=== PATIENT | female | born 1970 | race African-American/Black ===

== ENCOUNTER 2017-11-07 18:12 | Inpatient (IN) | payer OTHER ==
[2017-11-07] MEDS ORDERED: SODIUM CHLORIDE 0.9% 1000 ML INFUS.BAG IV STA (18:25)
--- NOTE | 2017-11-07 18:25 | PDOC ---
Attending Attestation - Resident Resident Name: Leo Mccollum - ED Attending Attestation I have performed the following: I have examined & evaluated the patient, The case was reviewed & discussed with the resident, I agree w/resident's findings & plan, Exceptions are as noted - HPI HPI: 11/07/17 18:21 eLEVATED tEMP, dEPRESSED lEVEL OF cONSCIOUSNESS, TOXIC aPPEARANCE, hX OF [place] cHOREA - Physicial Exam PE: 11/07/17 18:24 aCUTELY iLL/sEPTIC aPPEARANCE - Medical Decision Making 11/07/17 18:24 i AGREE WITH dR. Mccollum'S aSSESMENT AND pLAN
[2017-11-07 18:43] VITALS: BMI 19.2
[2017-11-07] MEDS ORDERED: ACETAMINOPHEN 1000 MG/100 ML VIAL (NON FORMULARY) IVPB ONE (18:45)
[2017-11-07] MEDS ORDERED: ACETAMINOPHEN INJECTION 100 ML IVPB ONE (18:46)
[2017-11-07 18:54] LABS: EOS % 0.2 % (0-4.5); HEMATOCRIT 40.6 % (32.4-45.2); HEMOGLOBIN 13.3 GM/dL (10.7-15.3); MCHC 32.6 g/dl (32.0-36.0); MEAN CELL VOLUME 88.9 fl (80-96); MEAN PLT VOLUME 8.5 fl (7.5-11.1); MONO % 6.3 % (3.8-10.2); NEUT % 73.5 % (42.8-82.8); PLATELET COUNT 413 K/MM3 (134-434); RBC 4.57 M/mm3 (3.60-5.2); RDW 14.7 % (11.6-15.6); WHITE BLOOD COUNT 12.4 K/mm3 (4.0-10.0)
[2017-11-07 19:12] LABS: INR 0.97 (0.82-1.09)
[2017-11-07 19:15] LABS: ACTIVATED PTT 30.1 SECONDS (26.9-34.4)
--- NOTE | 2017-11-07 19:27 | PDOC ---
History of Present Illness - General Chief Complaint: SIRS, Suspected/Possible Stated Complaint: FEVER Time Seen by Provider: 11/07/17 18:21 - History of Present Illness Initial Comments: 11/07/17 23:15 The patient is a 47 year old female with a history of Mel's, Bipolar, anxiety, depression, CAD, Epilepsy, anemia who presents from [facility] for evaluation of projectile vomiting, fever, and tachycardia. The patient was recently admitted at an OSH for sepsis and discharged to [facility]. She was noted to have projectile vomiting on rounds and sent to the ER for evaluation. History is limited and the patient is non-verbal at baseline and minimally responsive. She does have a PEG tube placed with a recent confirmed CT demonstrating the PEG tube within the body of the stomach. Past History - Past Medical History Allergies/Adverse Reactions: Allergies Allergy/AdvReac Type Severity Reaction Status Date / Time No Known Allergies Allergy Verified 11/07/17 18:36 Home Medications: Ambulatory Orders Acetaminophen 650 mg GT Q6H PRN 11/07/17 Albuterol 0.083% Nebulizer Betsy [Ventolin 0.083% Nebulizer Soln -] 1 neb NEB Q6H 11/07/17 Bacitracin - [Bacitracin Topical Ointment -] 1 applic TP DAILY 11/07/17 Clonazepam 1 mg GT TID 11/07/17 Ferrous Sulfate *Liquid* [Feosol] 5 mg NGT DAILY 11/07/17 Fluticasone Prop 0.05% Nasal [Flonase -] 1 - 2 spray NS BID 11/07/17 Levetiracetam [Keppra Oral Solution -] 1,000 mg GT BID 11/07/17 Magnesium Hydroxide [Milk of Magnesia -] 30 ml GT DAILY 11/07/17 Mirtazapine [Remeron -] 30 mg GT DAILY 11/07/17 Nystatin Cream [Mycostatin] 1 applic TP BID 11/07/17 Phenobarbital - 64.8 mg GT BID 11/07/17 Polyethylene Glycol 3350 [Miralax (For Bowel Prep) -] 17 gm GT DAILY PRN Sennosides [Senna Concentrate] 8.6 mg GT DAILY 11/07/17 Sodium Phosphate,[place]-Dibasic [Fleet Enema] 133 ml [place] DAILY PRN 11/07/17 Triamcinolone 0.1% Cream [Aristocort] 1 applic TP BID 11/07/17 Valproate Sodium [Depakene] 1,125 mg GT BID 11/07/17 Anemia: Yes COPD: No Psychiatric Problems: Yes (ANXIETY,DEPRESSIVE DISORDER,PANIC DISORDER,BIPOLAR) Seizures: Yes Other medical history: [place] - Suicide/Smoking/Psychosocial Hx Smoking History: Unknown if ever smoked Review of Systems - Review of Systems Able to Perform ROS?: No (Unresponsive patient) *Physical Exam - Vital Signs Last Vital Signs Temp Pulse Resp BP Pulse Ox 139 H 24 111/88 93 L 11/07/17 18:36 11/07/17 18:36 11/07/17 18:36 11/07/17 18:36 - Physical Exam Comments: 11/07/17 23:18 General Appearance: Nourished. No Apparent Distress HEENT: EOMI, EMILEE. No Pharyngeal Erythema, Tonsillar Exudate, Tonsillar Erythema Neck: No Cervical Lymphadenopathy Respiratory/Chest: Lungs Clear, Normal Breath Sounds. No Crackles, Rales, Rhonchi, Wheezing Cardiovascular: Regular Rhythm, Regular Rate. No Murmur, Gallops, Rubs Gastrointestinal/Abdominal: Normal Bowel Sounds, Soft. No Guarding, Rebound, Tenderness Musculoskeletal: No CVA Tenderness Extremity: Normal Capillary Refill Integumentary: Normal Color, Dry, Warm Neurologic: Minimally responsive at baseline. Alert. ED Treatment Course - LABORATORY CBC & Chemistry Diagram: 11/07/17 18:45 11/07/17 18:45 - ADDITIONAL ORDERS Additional order review: Laboratory Results 11/07/17 11/07/17 18:45 18:40 VBG pH Cancelled POC VBG pCO2 Cancelled POC VBG pO2 Cancelled Mixed VBG HCO3 Cancelled Blood Type Cancelled Antibody Screen Cancelled 11/07/17 18:45 RBC 4.57 MCV 88.9 MCHC 32.6 RDW 14.7 MPV 8.5 Neutrophils % 73.5 Lymphocytes % 19.0 Monocytes % 6.3 Eosinophils % 0.2 Basophils % 1.0 - Medications Given in the ED: ED Medications Discontinued Medications Generic Name Dose Route Start Last Admin Trade Name Freq PRN Reason Stop Dose Admin Acetaminophen 1,000 mg 11/07/17 18:45 11/07/17 19:01 Ofirmev Injection - IVPB 11/07/17 18:46 1,000 mg ONCE ONE Administration Sodium Chloride 2,000 ml 11/07/17 18:25 11/07/17 18:35 Normal Saline - IV 11/07/17 18:26 2,000 ml ONCE STA Administration Medical Decision Making - Medical Decision Making 11/07/17 23:19 The patient is a 47 year old female with a history of Mel's, Bipolar, anxiety, depression, CAD, Epilepsy, anemia who presents from [facility] for evaluation of projectile vomiting, fever, and tachycardia. Differential includes but is not limited to: Sepsis, pneumonia, UTI, infectious , metabolic derangement. Given the patient's tachycardia, fever of 100F, and recent admission for sepsis, we are concerned the patient's current symptoms are due to sepsis. We will obtain a cbc, cmp, lactate, vbg, troponin, ua, ekg, chest and abdomen plain films, and head ct to evaluate for other etiologies. We will continue to monitor and reassess. 11/07/17 23:49 CBC demonstrates a wbc elevation to 12.5. CMP, lactate, troponin, ua are unremarkable. chest and abdomen plain films are unremarkable as preliminarily read by the ER physician. Head CT is negative as read by our radiologist. Given the patient's continued tachycardia, fever to 100, and elevated wbc, we believe the patient requires observation admission for further management of her symptoms. We discussed the case with the hospitalist team who accepted the patient for admission. *DC/Admit/Observation/Transfer Diagnosis at time of Disposition: Sepsis Qualifiers: Sepsis type: sepsis due to unspecified organism Qualified Code(s): A41.9 - Sepsis, unspecified organism - Discharge Dispostion Condition at time of disposition: Guarded Admit: Yes - Referrals Referrals: Dave Catherine [Primary Care Provider] - - Patient Instructions - Post Discharge Activity
[2017-11-07 19:30] LABS: ALBUMIN 2.8 g/dl (3.4-5.0); BILIRUBIN,TOTAL 0.3 mg/dL (0.2-1.0); BLOOD UREA NITROGEN 16 mg/dL (7-18); CALCIUM 8.9 mg/dL (8.5-10.1); CHLORIDE 102 mmol/L (98-107); CO2 29 mmol/L (21-32); CREATININE 0.3 mg/dL (0.55-1.02); GLUCOSE,RANDOM 114 mg/dL (74-106); SGPT/ALT 182 U/L (12-78); TOT PROT 7.9 g/dl (6.4-8.2)
[2017-11-07 19:32] LABS: ALK PHOS 245 U/L (45-117)
[2017-11-07 19:48] LABS: ANION GAP 7 (8-16); SODIUM 138 mmol/L (136-145)
[2017-11-07 20:07] LABS: URINE APPEARANCE SLCLOUDY; URINE BILIRUBIN NEGATIVE (NEGATIVE); URINE BLOOD NEGATIVE (NEGATIVE); URINE COLOR YELLOW; URINE GLUCOSE (UA) NEGATIVE (NEGATIVE); URINE KETONE TRACE (NEGATIVE); URINE LEUK ESTERASE NEGATIVE (NEGATIVE); URINE NITRITE NEGATIVE (NEGATIVE)
[2017-11-07 20:20] LABS: POTASSIUM 4.5 mmol/L (3.5-5.1); SGOT/AST 171 U/L (15-37)
[2017-11-07 21:44] LABS: URINE PROTEIN 1+ (NEGATIVE)
[2017-11-07 22:03] LABS: EPI CELLS FEW /HPF (FEW); URINE MUCUS RARE
[2017-11-07 23:28] LABS: PLATELET ESTIMATE SLT INCREASE
--- NOTE | 2017-11-08 05:16 | HP ---
Admitting History and Physical - Primary Care Physician PCP: Dave Catherine - Admission Chief Complaint: Vomiting History of Present Illness: This is a 47 y/o woman with a past medical history of Zohreh's, Bipolar, Anxiety, Depression, CAD, Epilepsy, Anemia. who presents to the ED from [facility] for evaluation of projectile vomiting, fever, and tachycardia. As per ER records: the patient was admitted to [place] for Sepsis, then d/c to [facility]. The patient has a PEG tube placed with recent confirmed CT demonstrating the PEG tube within the body is in place. The patient was given 2L NS for resuscitation, Tylenol IV for fever. History Source: Medical Record, Transfer Record Limitations to Obtaining History: Clinical Condition, Dementia - Past Medical History DIRECTOR OF STATE: Yes: Dementia, Seizure (Epilepsy), Other ([place]'s) Cardiovascular: Yes: CAD Heme/Onc: Yes: Anemia Psych: Yes: Anxiety, Bipolar, Depression - Smoking History Smoking history: Unknown if ever smoked - Alcohol/Substance Use Hx Alcohol Use: No (unknown) History of Substance Use: reports: None - Social History Usual Living Arrangement: Yes: [facility] ADL: Support Services History of Recent Travel: No Home Medications - Allergies Allergies/Adverse Reactions: Allergies Allergy/AdvReac Type Severity Reaction Status Date / Time No Known Allergies Allergy Verified 11/07/17 18:36 - Home Medications Home Medications: Ambulatory Orders Acetaminophen 650 mg GT Q6H PRN 11/07/17 Albuterol 0.083% Nebulizer Betsy [Ventolin 0.083% Nebulizer Soln -] 1 neb NEB Q6H 11/07/17 Bacitracin - [Bacitracin Topical Ointment -] 1 applic TP DAILY 11/07/17 Clonazepam 1 mg GT TID 11/07/17 Ferrous Sulfate *Liquid* [Feosol] 5 mg NGT DAILY 11/07/17 Fluticasone Prop 0.05% Nasal [Flonase -] 1 - 2 spray NS BID 11/07/17 Levetiracetam [Keppra Oral Solution -] 1,000 mg GT BID 11/07/17 Magnesium Hydroxide [Milk of Magnesia -] 30 ml GT DAILY 11/07/17 Mirtazapine [Remeron -] 30 mg GT DAILY 11/07/17 Nystatin Cream [Mycostatin] 1 applic TP BID 11/07/17 Phenobarbital - 64.8 mg GT BID 11/07/17 Polyethylene Glycol 3350 [Miralax (For Bowel Prep) -] 17 gm GT DAILY PRN Sennosides [Senna Concentrate] 8.6 mg GT DAILY 11/07/17 Sodium Phosphate,[place]-Dibasic [Fleet Enema] 133 ml [place] DAILY PRN 11/07/17 Triamcinolone 0.1% Cream [Aristocort] 1 applic TP BID 11/07/17 Valproate Sodium [Depakene] 1,125 mg GT BID 11/07/17 Family Disease History - Family Disease History Family History: Unable to Obtain Review of Systems Unable to obtain ROS, reason: [place]'s, Dementia Physical Examination Vital Signs: Vital Signs Temperature 100 F H 11/07/17 22:45 Pulse Rate 126 H 11/08/17 04:15 Respiratory Rate 22 11/07/17 22:45 Blood Pressure 124/89 11/08/17 04:15 O2 Sat by Pulse Oximetry (%) 97 11/08/17 04:15 Constitutional: Yes: Anxious, Mild Distress, Thin Eyes: Yes: Conjunctiva Clear, PERRL HENT: Yes: Other (Dry mucous membranes, crusting to lips/oral mucousa) Neck: Yes: WNL, Supple, Trachea Midline Cardiovascular: Yes: Tachycardia, S1, S2 Respiratory: Yes: WNL, Regular, CTA Bilaterally, On Nasal O2 Gastrointestinal: Yes: Soft, Hypoactive Bowel Sounds, Other (PEG upper abdomen) ...Rectal Exam: Yes: Deferred Renal/: Yes: [place] Present (dark yellow urine in drainage bag) Breast(s): Yes: WNL Musculoskeletal: Yes: Muscle Weakness Edema: No Peripheral Pulses WNL: Yes Integumentary: Yes: WNL Neurological: Yes: Alert, Other (non-verbal- baseline) Psychiatric: Yes: Alert Labs: CBC, BMP 11/07/17 18:45 11/07/17 18:45 Laboratory Results - last 24 hr 11/07/17 11/07/17 11/07/17 18:40 18:45 18:45 WBC 12.4 H RBC 4.57 Hgb 13.3 Hct 40.6 MCV 88.9 MCH 29.0 MCHC 32.6 RDW 14.7 Plt Count 413 MPV 8.5 Neutrophils % 73.5 Lymphocytes % 19.0 Monocytes % 6.3 Eosinophils % 0.2 Basophils % 1.0 Platelet Estimate Slt increase Platelet Comment No clotting detected PT with INR 11.00 INR 0.97 PTT (Actin FS) 30.1 VBG pH Cancelled POC VBG pCO2 Cancelled POC VBG pO2 Cancelled Mixed VBG HCO3 Cancelled Sodium Potassium Chloride Carbon Dioxide Anion Gap BUN Creatinine Creat Clearance w eGFR Random Glucose Lactic Acid Calcium Total Bilirubin AST ALT Alkaline Phosphatase Creatine Kinase Troponin I Total Protein Albumin Urine Color Urine Appearance Urine pH Ur Specific [place] Urine Protein Urine Glucose (UA) Urine Ketones Urine Blood Urine Nitrite Urine Bilirubin Urine Urobilinogen Ur Leukocyte Esterase Urine WBC (Auto) Urine RBC (Auto) Ur Epithelial Cells Urine Mucus Urine HCG, Qual Valproic Acid Blood Type Antibody Screen 11/07/17 11/07/17 11/07/17 18:45 18:45 18:50 WBC RBC Hgb Hct MCV MCH MCHC RDW Plt Count MPV Neutrophils % Lymphocytes % Monocytes % Eosinophils % Basophils % Platelet Estimate Platelet Comment PT with INR INR PTT (Actin FS) VBG pH POC VBG pCO2 POC VBG pO2 Mixed VBG HCO3 Sodium 138 Potassium 4.5 Chloride 102 Carbon Dioxide 29 Anion Gap 7 L BUN 16 Creatinine 0.3 L Creat Clearance w eGFR > 60 Random Glucose 114 H Lactic Acid 1.7 Calcium 8.9 Total Bilirubin 0.3 AST 171 H ALT 182 H Alkaline Phosphatase 245 H Creatine Kinase 136 Troponin I < 0.02 Total Protein 7.9 Albumin 2.8 L Urine Color Urine Appearance Urine pH Ur Specific [place] Urine Protein Urine Glucose (UA) Urine Ketones Urine Blood Urine Nitrite Urine Bilirubin Urine Urobilinogen Ur Leukocyte Esterase Urine WBC (Auto) Urine RBC (Auto) Ur Epithelial Cells Urine Mucus Urine HCG, Qual Valproic Acid Blood Type Cancelled Antibody Screen Cancelled 11/07/17 11/07/17 11/08/17 18:58 19:40 01:45 WBC RBC Hgb Hct MCV MCH MCHC RDW Plt Count MPV Neutrophils % Lymphocytes % Monocytes % Eosinophils % Basophils % Platelet Estimate Platelet Comment PT with INR INR PTT (Actin FS) VBG pH POC VBG pCO2 POC VBG pO2 Mixed VBG HCO3 Sodium Potassium Chloride Carbon Dioxide Anion Gap BUN Creatinine Creat Clearance w eGFR Random Glucose Lactic Acid Calcium Total Bilirubin AST ALT Alkaline Phosphatase Creatine Kinase Troponin I Total Protein Albumin Urine Color Yellow Urine Appearance Slcloudy Urine pH 5.0 Ur Specific [place] 1.033 Urine Protein 1+ H Urine Glucose (UA) Negative Urine Ketones Trace H Urine Blood Negative Urine Nitrite Negative Urine Bilirubin Negative Urine Urobilinogen 2.0 H Ur Leukocyte Esterase Negative Urine WBC (Auto) 8 Urine RBC (Auto) 12 Ur Epithelial Cells Few Urine Mucus Rare Urine HCG, Qual Negative Valproic Acid 56.870 Blood Type Antibody Screen Intake & Output 11/05/17 11/06/17 11/07/17 11/08/17 23:59 23:59 23:59 23:59 Weight 50.802 kg Imaging - Results Chest X-ray: Image Reviewed X-ray: Image Reviewed Cat Scan: Report Reviewed EKG: Image Reviewed (ST 115bpm, nonspecific T wave abnormality TN interval 118 QT/QTc 290/401) Problem List - Problems (1) Sepsis Assessment/Plan: - SIRS Criteria III Met- WBC 12.4, T Max 100, P- 110 - qSOFA Score 2 - Blood Cultures- pending - Urine Cultures- pending - Rapid Influenza- pending - Chest Xray image reviewed no infiltrate, awaiting report - NS bolus, Tylenol given in ED - Appreicate ID Consult - Will start Vancomycin, Rocephin now - Continue IVF monitor for fluid overload Code(s): A41.9 - SEPSIS, UNSPECIFIED ORGANISM Qualifiers: Sepsis type: sepsis due to unspecified organism Qualified Code(s): A41.9 - Sepsis, unspecified organism (2) Elevated LFTs Assessment/Plan: - LFTs > 3XNL - Likely secondary to Sepsis vs Acute Viral Hepatitis vs Tylenol Toxicity - Xray Abdomen- report pending - Consider Abdominal CT if condition worsens - Hepatic Panel in am - Tylenol level in am Code(s): R79.89 - OTHER SPECIFIED ABNORMAL FINDINGS OF BLOOD CHEMISTRY (3) Dementia Assessment/Plan: - Continue home med Code(s): F03.90 - UNSPECIFIED DEMENTIA WITHOUT BEHAVIORAL DISTURBANCE (4) Zohreh disease Assessment/Plan: - 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 Placed in Tele Observation for Sepsis. FEN - D51/2NS@75cc/hr - Replete breanne velazquezn - NPO Code Status: Full Code Dispo: Tele Observation Visit type - Emergency Visit Emergency Visit: Yes ED Registration Date: 11/07/17 Care time: The patient presented to the Emergency Department on the above date and was hospitalized for further evaluation of their emergent condition. - New Patient This patient is new to me today: Yes Date on this admission: 11/08/17 - Critical Care Critical Care patient: No
[2017-11-08] MEDS ORDERED: SODIUM CHLORIDE 500 ML IV STA (05:21)
[2017-11-08] MEDS ORDERED: VANCOMYCIN 1 GRAM (PRE-DOCKED) 1,000 MG/250 ML BAG IVPB ONE (05:58)
[2017-11-08] MEDS ORDERED: CEFTRIAXONE 1 GM in DEXTROSE 5%-WATER - 100 ML IVPB ONE (05:59)
[2017-11-08] MEDS ORDERED: PATIENT'S OWN MEDICATION (NON-FORMULARY) (Clonazepam [Clonazepam] 1 MG) GT SCH (06:00)
[2017-11-08] MEDS ORDERED: CEFTRIAXONE 1 GM/50 ML BAG ONE (06:02)
[2017-11-08] MEDS ORDERED: ACETAMINOPHEN 1000 MG/100 ML VIAL (NON FORMULARY) IVPB ONE (06:40)
[2017-11-08] MEDS ORDERED: IBUPROFEN 800 MG/8 ML IJ IVPB ONE (06:47)
[2017-11-08] MEDS: DEXTROSE 5%-0.45% SALINE 1,000 ML IV SCH (06:51)
[2017-11-08] MEDS ORDERED: clonazePAM 0.5 MG TABLET ONE (06:54)
[2017-11-08 08:58] LABS: BASO % 0.4 % (0-2.0); EOS % 0.3 % (0-4.5); HEMATOCRIT 38.4 % (32.4-45.2); MCH 28.5 pg (25.7-33.7); MCHC 31.3 g/dl (32.0-36.0); MEAN CELL VOLUME 91.1 fl (80-96); MEAN PLT VOLUME 8.4 fl (7.5-11.1); MONO % 6.3 % (3.8-10.2); PLATELET COUNT 284 K/MM3 (134-434); RBC 4.21 M/mm3 (3.60-5.2); RDW 14.7 % (11.6-15.6); WHITE BLOOD COUNT 11.5 K/mm3 (4.0-10.0)
[2017-11-08 09:13] LABS: ANION GAP 10 (8-16); BLOOD UREA NITROGEN 15 mg/dL (7-18); CALCIUM 8.9 mg/dL (8.5-10.1); CHLORIDE 106 mmol/L (98-107); CO2 25 mmol/L (21-32); CREATININE 0.2 mg/dL (0.55-1.02); GLUCOSE,RANDOM 121 mg/dL (74-106); POTASSIUM 3.6 mmol/L (3.5-5.1); SODIUM 141 mmol/L (136-145)
[2017-11-08] MEDS ORDERED: PHENobarbital 20 MG/5 ML UNIT-DOSE CUP GT SCH (10:00)
[2017-11-08] MEDS ORDERED: VALPROATE SODIUM 250 MG/5 ML UNIT DOSE CUP GT SCH (10:00)
[2017-11-08] MEDS ORDERED: SENNOSIDES 8.6MG TABLET (FP) PO SCH (10:00)
[2017-11-08] MEDS ORDERED: levETIRAcetam 500 MG/5 ML ORAL SOLUTION (UNIT-DOSE CUPS) GT SCH (10:00)
[2017-11-08] MEDS ORDERED: MIRTAZAPINE 15 MG TABLET (FP) ONE (10:27)
[2017-11-08] MEDS ORDERED: SENNOSIDES 8.8 MG/5 ML BULK BOTTLE GT SCH (10:31)
[2017-11-08] MEDS: MIRTAZAPINE 30 MG TABLET (FP) PO SCH (11:10)
[2017-11-08] MEDS ORDERED: ACETAMINOPHEN 325 MG TABLET (FP) PO PRN (11:36)
--- NOTE | 2017-11-08 13:01 | EKG ---
Test Reason : Blood Pressure : / mmHG Vent. Rate : 115 BPM Atrial Rate : 115 BPM P-R Int : 118 ms QRS Dur : 058 ms QT Int : 290 ms P-R-T Axes : 073 031 021 degrees QTc Int : 401 ms SINUS TACHYCARDIA POSSIBLE LEFT ATRIAL ENLARGEMENT NONSPECIFIC T WAVE ABNORMALITY ABNORMAL ECG NO PREVIOUS ECGS AVAILABLE Confirmed by ANETA GARCIA, ALEX ([id number]) on 11/08/2017 1:01:16 PM Referred By: Confirmed By:ALEX CORNELL MD
--- NOTE | 2017-11-08 15:15 | PN ---
Progress Note, Physician Chief Complaint: AWAKE NON-VERBAL APHASIC NOTES AND RECORDS REVIEWED - Current Medication List Current Medications: Active Medications Acetaminophen (Tylenol -) 650 mg PO Q6H PRN PRN Reason: FEVER OR PAIN Clonazepam (Klonopin -) 1 mg GT TID [facility], [facility] Dextrose/Sodium Chloride (D5-1/2ns -) 1,000 mls @ 75 mls/hr IV ASDIR [facility], [facility]1983 Last Admin: 11/08/17 06:51 Dose: 75 mls/hr Levetiracetam (Keppra Oral Solution -) 1,000 mg GT BID [facility], [facility] Last Admin: 11/08/17 11:10 Dose: 1,000 mg Mirtazapine (Remeron -) 30 mg PO DAILY [facility] Last Admin: 11/08/17 11:10 Dose: 30 mg Phenobarbital (Phenobarbital Liquid -) 60 mg GT BID [facility] Last Admin: 11/08/17 11:10 Dose: 60 mg Senna (Senna Oral Solution -) 8.8 mg GT DAILY [facility] Valproate Sodium (Depakene -) 1,125 mg GT BID [facility], [facility] Last Admin: 11/08/17 11:10 Dose: 1,125 mg - Objective Vital Signs: Vital Signs Temperature 97.4 F L 11/08/17 13:00 Pulse Rate 100 H 11/08/17 13:00 Respiratory Rate 18 11/08/17 13:00 Blood Pressure 110/74 11/08/17 13:00 O2 Sat by Pulse Oximetry (%) 99 11/08/17 11:35 Constitutional: Yes: Mild Distress Eyes: Yes: WNL HENT: Yes: WNL Neck: Yes: WNL Cardiovascular: Yes: Tachycardia Respiratory: Yes: On Nasal O2, Wheezes Gastrointestinal: Yes: WNL Genitourinary: Yes: Incontinence Musculoskeletal: Yes: Muscle Weakness Extremities: Yes: Other Edema: No Peripheral Pulses WNL: Yes Integumentary: Yes: WNL Wound/Incision: Yes: Clean/Dry Neurological: Yes: Dysarthria, Loss of Sensation, Numbness, Pre-Existing Deficit , Unsteady Gait, Weakness ...Motor Strength: LUE, LLE, RUE, RLE Psychiatric: Yes: Other Labs: CBC, BMP 11/08/17 08:40 11/08/17 08:40 INR, PTT INR 0.97 (0.82-1.09) 11/07/17 18:45 Problem List - Problems (1) DVT prophylaxis Code(s): [id number] - (2) Dementia Code(s): F03.90 - UNSPECIFIED DEMENTIA WITHOUT BEHAVIORAL DISTURBANCE Qualifiers: Dementia type: unspecified type Dementia behavioral disturbance: with behavioral disturbance Qualified Code(s): F03.91 - Unspecified dementia with behavioral disturbance (3) Elevated LFTs Code(s): R79.89 - OTHER SPECIFIED ABNORMAL FINDINGS OF BLOOD CHEMISTRY (4) Epilepsy Code(s): G40.909 - EPILEPSY, UNSP, NOT INTRACTABLE, WITHOUT STATUS EPILEPTICUS Qualifiers: Partial seizure type: with complex partial seizures Intractability: intractable Status epilepticus: without status epilepticus (5) [place]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 Assessment/Plan IV ABX ID CONSULT NEUROLOGY EVAL IVF TYLENOL PRN
[2017-11-08] MEDS: clonazePAM 0.5 MG TABLET GT SCH ×2 (16:00→21:34)
[2017-11-08] MEDS ORDERED: PIPERACILLIN/TAZOB 3.375 GM 50 ML IVPB SCH (18:00)
--- NOTE | 2017-11-08 18:02 | CON.ID ---
Consult Consult Specialty:: infectious diseases Reason for Consultation:: sepsis,intestinal obstruction - History of Present Illness Chief Complaint: abd pain,distension History of Present Illness: 47 y/o woman with a past medical history of [place]'s, Bipolar, Anxiety, Depression, CAD, Epilepsy, Anemia. who presents to the ED from [facility] for evaluation of projectile vomiting, fever, and tachycardia. As per ER records: the patient was admitted to [place] for Sepsis, then d/c to [facility]. The patient has a PEG tube placed with recent confirmed CT demonstrating the PEG tube within the body is in place. The patient was given 2L NS for resuscitation, Tylenol IV for fever. 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: Dementia, Seizure (Epilepsy), Other ([place]'s) Cardio/Vascular: Yes: CAD Psych: Yes: Anxiety, Bipolar, Depression - Alcohol/Substance Use Hx Alcohol Use: No (unknown) History of Substance Use: reports: None - Smoking History Smoking history: Unknown if ever smoked - Social History ADL: Support Services History of Recent Travel: No Home Medications - Allergies Allergies/Adverse Reactions: Allergies Allergy/AdvReac Type Severity Reaction Status Date / Time No Known Allergies Allergy Verified 11/07/17 18:36 - Home Medications Home Medications: Ambulatory Orders Acetaminophen 650 mg GT Q6H PRN 11/07/17 Albuterol 0.083% Nebulizer Betsy [Ventolin 0.083% Nebulizer Soln -] 1 neb NEB Q6H 11/07/17 Bacitracin - [Bacitracin Topical Ointment -] 1 applic TP DAILY 11/07/17 Clonazepam 1 mg GT TID 11/07/17 Ferrous Sulfate *Liquid* [Feosol] 5 mg NGT DAILY 11/07/17 Fluticasone Prop 0.05% Nasal [Flonase -] 1 - 2 spray NS BID 11/07/17 Levetiracetam [Keppra Oral Solution -] 1,000 mg GT BID 11/07/17 Magnesium Hydroxide [Milk of Magnesia -] 30 ml GT DAILY 11/07/17 Mirtazapine [Remeron -] 30 mg GT DAILY 11/07/17 Nystatin Cream [Mycostatin] 1 applic TP BID 11/07/17 Phenobarbital - 64.8 mg GT BID 11/07/17 Polyethylene Glycol 3350 [Miralax (For Bowel Prep) -] 17 gm GT DAILY PRN Sennosides [Senna Concentrate] 8.6 mg GT DAILY 11/07/17 Sodium Phosphate,[place]-Dibasic [Fleet Enema] 133 ml [place] DAILY PRN 11/07/17 Triamcinolone 0.1% Cream [Aristocort] 1 applic TP BID 11/07/17 Valproate Sodium [Depakene] 1,125 mg GT BID 11/07/17 Review of Systems Unable to obtain ROS, reason: unable Physical Exam Vital Signs: Vital Signs Temperature 99.1 F 11/08/17 15:49 Pulse Rate 93 H 11/08/17 15:49 Respiratory Rate 16 11/08/17 15:49 Blood Pressure 116/78 11/08/17 15:49 O2 Sat by Pulse Oximetry (%) 99 11/08/17 11:35 Constitutional: Yes: Moderate Distress Eyes: Yes: Conjunctiva Clear HENT: Yes: Atraumatic, Normocephalic Neck: Yes: Supple, Trachea Midline Cardiovascular: Yes: Regular Rate and Rhythm Respiratory: Yes: Poor Air Entry (at the bases of the lungs) Gastrointestinal: Yes: Distention, Hyperactive Bowel Sounds, Tenderness, Other ( g tube in place) Musculoskeletal: Yes: WNL Extremities: Yes: WNL Neurological: Yes: Alert Psychiatric: Yes: Alert Labs: CBC, BMP 11/08/17 08:40 11/08/17 08:40 Imaging - Results X-ray: Report Reviewed, Image Reviewed Cat Scan: Report Reviewed, Image Reviewed Assessment/Plan Problem List - Problems (1) DVT prophylaxis Code(s): [id number] - (2) Dementia Code(s): F03.90 - UNSPECIFIED DEMENTIA WITHOUT BEHAVIORAL DISTURBANCE Qualifiers: Dementia type: unspecified type Dementia behavioral disturbance: with behavioral disturbance Qualified Code(s): F03.91 - Unspecified dementia with behavioral disturbance (3) Elevated LFTs Code(s): R79.89 - OTHER SPECIFIED ABNORMAL FINDINGS OF BLOOD CHEMISTRY (4) Epilepsy Code(s): G40.909 - EPILEPSY, UNSP, NOT INTRACTABLE, WITHOUT STATUS EPILEPTICUS Qualifiers: Partial seizure type: with complex partial seizures Intractability: intractable Status epilepticus: without status epilepticus (5) [place]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 7)intestinal obstruction i ahve looked at the xray i think patient probably has intestinal obstruction not complete her g tube is blocked and patient in discomfort d/w the nursing staff plan keep g-tube to drainage if the g tube does not open up then pass a ng tube iv abx changed to zosyn rest continue as per primary team
[2017-11-08] MEDS ORDERED: ONDANSETRON 4 MG/2 ML VIAL IVPUSH PRN (19:38)
[2017-11-08] MEDS ORDERED: SODIUM PHOSPHATE/NA BIPHOS 133 ML ENEMA RC ONE (19:45)
--- NOTE | 2017-11-08 19:58 | CON.GI ---
Consult Consult Specialty:: GI - History of Present Illness History of Present Illness: Chart reviewed, events noted. ID consult noted. Called for distended abdomen and bilious material aspirated via PEG. Suspicion for bowel obstruction. Abd xr one day ago was reported negative for bowel obstruction however the nurse tells me pt's abdomen appears to be more distended today. The xr also mentioend large anount of stool. 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 HAND: Yes: Dementia, Seizure (Epilepsy), Other ([place]'s) Cardio/Vascular: Yes: CAD Psych: Yes: Anxiety, Bipolar, Depression - Alcohol/Substance Use Hx Alcohol Use: No (unknown) History of Substance Use: reports: None - Smoking History Smoking history: Unknown if ever smoked - Social History ADL: Support Services History of Recent Travel: No Home Medications - Allergies Allergies/Adverse Reactions: Allergies Allergy/AdvReac Type Severity Reaction Status Date / Time No Known Allergies Allergy Verified 11/07/17 18:36 - Home Medications Home Medications: Ambulatory Orders Acetaminophen 650 mg GT Q6H PRN 11/07/17 Albuterol 0.083% Nebulizer Betsy [Ventolin 0.083% Nebulizer Soln -] 1 neb NEB Q6H 11/07/17 Bacitracin - [Bacitracin Topical Ointment -] 1 applic TP DAILY 11/07/17 Clonazepam 1 mg GT TID 11/07/17 Ferrous Sulfate *Liquid* [Feosol] 5 mg NGT DAILY 11/07/17 Fluticasone Prop 0.05% Nasal [Flonase -] 1 - 2 spray NS BID 11/07/17 Levetiracetam [Keppra Oral Solution -] 1,000 mg GT BID 11/07/17 Magnesium Hydroxide [Milk of Magnesia -] 30 ml GT DAILY 11/07/17 Mirtazapine [Remeron -] 30 mg GT DAILY 11/07/17 Nystatin Cream [Mycostatin] 1 applic TP BID 11/07/17 Phenobarbital - 64.8 mg GT BID 11/07/17 Polyethylene Glycol 3350 [Miralax (For Bowel Prep) -] 17 gm GT DAILY PRN Sennosides [Senna Concentrate] 8.6 mg GT DAILY 11/07/17 Sodium Phosphate,[place]-Dibasic [Fleet Enema] 133 ml [place] DAILY PRN 11/07/17 Triamcinolone 0.1% Cream [Aristocort] 1 applic TP BID 11/07/17 Valproate Sodium [Depakene] 1,125 mg GT BID 11/07/17 Review of Systems Unable to obtain ROS, reason: pt's condition Physical Exam-GI Vital Signs: Vital Signs Temperature 99.5 F 11/08/17 19:11 Pulse Rate 102 H 11/08/17 19:11 Respiratory Rate 18 11/08/17 19:11 Blood Pressure 110/67 11/08/17 19:11 O2 Sat by Pulse Oximetry (%) 99 11/08/17 11:35 Constitutional: Yes: Calm Eyes: Yes: Conjunctiva Clear HENT: Yes: Atraumatic Cardiovascular: Yes: Regular Rate and Rhythm Respiratory: Yes: Regular Gastrointestinal Inspection: Yes: Distention ...Auscultate: Yes: Hypoactive Bowel Sounds ...Palpate: No: Firm/Rigid, Guarding, Mass, Tenderness Labs: CBC, BMP 11/08/17 08:40 11/08/17 08:40 INR, PTT INR 0.97 (0.82-1.09) 11/07/17 18:45 Abnormal Lab Results 11/07/17 11/07/17 11/08/17 18:45 19:40 08:40 WBC 11.5 H MCHC 31.3 L Anion Gap 7 L Creatinine 0.3 L Random Glucose 114 H AST 171 H ALT 182 H Alkaline Phosphatase 245 H Albumin 2.8 L Urine Protein 1+ H Urine Ketones Trace H Urine Urobilinogen 2.0 H Acetaminophen 11/08/17 11/08/17 08:40 08:40 WBC MCHC Anion Gap Creatinine 0.2 L D Random Glucose 121 H AST ALT Alkaline Phosphatase Albumin Urine Protein Urine Ketones Urine Urobilinogen Acetaminophen < 2.000 L Imaging - Results X-ray: Report Reviewed Problem List - Problems (1) Distended abdomen Code(s): R14.0 - ABDOMINAL DISTENSION (GASEOUS) (2) Constipation Code(s): K59.00 - CONSTIPATION, UNSPECIFIED Assessment/Plan Repeat abdominal xr keep PEG to gravity Kepp head of the bed elevated check electrolytes Tap water enema x 2-3 or until good stool return If no bowel obstruction on imaging, consider miralax tid-qid via PEG Sx eval per imaging results
[2017-11-08] MEDS: PIPERACILLIN/TAZOB 3.375 GM 3.375 GM in DEXTROSE 5%-WATER - 100 ML IVPB SCH (20:14)
[2017-11-08] MEDS: VALPROATE SODIUM 500 MG/5 ML VIAL IVPB SCH (21:37)
[2017-11-08] MEDS: levETIRAcetam 500 MG/5 ML INJECTION VIAL IVPB SCH (22:49)
[2017-11-08] MEDS: PHENobarbital SODIUM 65 MG/1 ML VIAL IVPB SCH (23:15)
[2017-11-09] MEDS: PIPERACILLIN/TAZOB 3.375 GM 3.375 GM in DEXTROSE 5%-WATER - 100 ML IVPB SCH ×3 (01:38→23:26)
[2017-11-09] MEDS: DEXTROSE 5%-0.45% SALINE 1,000 ML IV SCH ×2 (01:40→09:13)
[2017-11-09] MEDS: clonazePAM 0.5 MG TABLET GT SCH ×3 (05:03→23:26)
[2017-11-09 08:54] LABS: ALBUMIN 2.4 g/dl (3.4-5.0); ANION GAP 7 (8-16); BLOOD UREA NITROGEN 8 mg/dL (7-18); CALCIUM 8.4 mg/dL (8.5-10.1); CHLORIDE 103 mmol/L (98-107); CO2 28 mmol/L (21-32); CREATININE 0.2 mg/dL (0.55-1.02); GLUCOSE,RANDOM 96 mg/dL (74-106); SGOT/AST 80 U/L (15-37); SGPT/ALT 120 U/L (12-78); SODIUM 138 mmol/L (136-145)
[2017-11-09 08:56] LABS: ALK PHOS 187 U/L (45-117); BILIRUBIN,TOTAL 0.4 mg/dL (0.2-1.0); TOT PROT 6.4 g/dl (6.4-8.2)
[2017-11-09] MEDS: levETIRAcetam 500 MG/5 ML INJECTION VIAL IVPB SCH ×2 (09:17→23:31)
--- NOTE | 2017-11-09 10:37 | PN ---
Progress Note, Physician Chief Complaint: AWAKE IN DISTRESS NPO GT TO SUCTION - Current Medication List Current Medications: Active Medications Acetaminophen (Tylenol -) 650 mg PO Q6H PRN PRN Reason: FEVER OR PAIN Clonazepam (Klonopin -) 1 mg GT TID [facility] Last Admin: 11/09/17 05:03 Dose: Not Given Dextrose/Sodium Chloride (D5-1/2ns -) 1,000 mls @ 75 mls/hr IV ASDIR [facility] Last Admin: 11/09/17 09:13 Dose: Not Given Piperacillin Sod/Tazobactam (Sod 3.375 gm/ Dextrose) 100 mls @ 200 mls/hr IVPB Q8H-IV [facility] Last Admin: 11/09/17 01:38 Dose: 200 mls/hr Levetiracetam (Keppra Injection -) 1,000 mg IVPB BID [facility] Last Admin: 11/09/17 09:17 Dose: 1,000 mg Mirtazapine (Remeron -) 30 mg PO DAILY [facility] Last Admin: 11/08/17 11:10 Dose: 30 mg Ondansetron HCl (Zofran Injection) 4 mg IVPUSH Q6H PRN PRN Reason: NAUSEA AND/OR VOMITING Last Admin: 11/09/17 08:53 Dose: 4 mg Phenobarbital (Phenobarbital Injection -) 60 mg IVPB BID [facility] Last Admin: 11/08/17 23:15 Dose: 60 mg Senna (Senna Oral Solution -) 8.8 mg GT DAILY [facility] Valproate Sodium (Depacon Injection -) 1,125 mg IVPB BID [facility] Last Admin: 11/08/17 21:37 Dose: 1,125 mg - Objective Vital Signs: Vital Signs Temperature 97.9 F 11/09/17 06:00 Pulse Rate 96 H 11/09/17 06:00 Respiratory Rate 20 11/09/17 06:00 Blood Pressure 116/64 11/09/17 06:00 O2 Sat by Pulse Oximetry (%) 98 11/09/17 02:00 Constitutional: Yes: Moderate Distress Eyes: Yes: WNL HENT: Yes: WNL Neck: Yes: WNL Cardiovascular: Yes: Tachycardia Respiratory: Yes: On Nasal O2 Gastrointestinal: Yes: Distention, Tenderness Genitourinary: Yes: Incontinence Musculoskeletal: Yes: Muscle Weakness Extremities: Yes: Other Edema: No Integumentary: Yes: Other Wound/Incision: Yes: Other Neurological: Yes: Other ...Motor Strength: LLE, RLE Psychiatric: Yes: Other Labs: CBC, BMP 11/08/17 08:40 11/09/17 07:45 INR, PTT INR 0.97 (0.82-1.09) 11/07/17 18:45 Problem List - Problems (1) DVT prophylaxis Code(s): [id number] - (2) Dementia Code(s): F03.90 - UNSPECIFIED DEMENTIA WITHOUT BEHAVIORAL DISTURBANCE Qualifiers: Dementia type: unspecified type Dementia behavioral disturbance: with behavioral disturbance Qualified Code(s): F03.91 - Unspecified dementia with behavioral disturbance (3) Elevated LFTs Code(s): R79.89 - OTHER SPECIFIED ABNORMAL FINDINGS OF BLOOD CHEMISTRY (4) Epilepsy Code(s): G40.909 - EPILEPSY, UNSP, NOT INTRACTABLE, WITHOUT STATUS EPILEPTICUS Qualifiers: Partial seizure type: with complex partial seizures Intractability: intractable Status epilepticus: without status epilepticus (5) [place]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
[2017-11-09] MEDS ORDERED: SODIUM PHOSPHATE/NA BIPHOS 133 ML ENEMA PR PRN (10:38)
[2017-11-09 10:48] LABS: POTASSIUM 2.9 mmol/L (3.5-5.1)
[2017-11-09] MEDS ORDERED: POTASSIUM CHLORIDE 30 MEQ in SODIUM CHLORIDE 300 ML IVPB ONE (11:00)
[2017-11-09] MEDS: PHENobarbital SODIUM 65 MG/1 ML VIAL IVPB SCH ×2 (11:02→23:31)
[2017-11-09] MEDS: SENNOSIDES 8.8 MG/5 ML BULK BOTTLE GT SCH (11:10)
[2017-11-09] MEDS: MIRTAZAPINE 30 MG TABLET (FP) PO SCH (11:10)
--- NOTE | 2017-11-09 11:21 | PN ---
Progress Note (short form) - Note Progress Note: DISCUSSED WITH SOFI NAVA BROTHER AND HCP OF THE PATIENT GUY NAVA. SOFI EXPRESSED HE WOULD LIKE DNR/DNI FOR HIS SISTER AFTER DISCUSSING WITH HIS AND GUY'S FAMILY. Problem List - Problems (1) DVT prophylaxis Code(s): [id number] - (2) Dementia Code(s): F03.90 - UNSPECIFIED DEMENTIA WITHOUT BEHAVIORAL DISTURBANCE Qualifiers: Dementia type: unspecified type Dementia behavioral disturbance: with behavioral disturbance Qualified Code(s): F03.91 - Unspecified dementia with behavioral disturbance (3) Elevated LFTs Code(s): R79.89 - OTHER SPECIFIED ABNORMAL FINDINGS OF BLOOD CHEMISTRY (4) Epilepsy Code(s): G40.909 - EPILEPSY, UNSP, NOT INTRACTABLE, WITHOUT STATUS EPILEPTICUS Qualifiers: Partial seizure type: with complex partial seizures Intractability: intractable Status epilepticus: without status epilepticus (5) [place]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
--- NOTE | 2017-11-09 14:11 | PN ---
Progress Note, Physician History of Present Illness: Abdomen is softer today. Had large BM last night. Non-obstructive abdominal xr. PEG patent. - Current Medication List Current Medications: Active Medications Acetaminophen (Tylenol -) 650 mg PO Q6H PRN PRN Reason: FEVER OR PAIN Clonazepam (Klonopin -) 1 mg GT TID [facility] Last Admin: 11/09/17 05:03 Dose: Not Given Dextrose/Sodium Chloride (D5-1/2ns -) 1,000 mls @ 75 mls/hr IV ASDIR [facility] Last Admin: 11/09/17 09:13 Dose: Not Given Piperacillin Sod/Tazobactam (Sod 3.375 gm/ Dextrose) 100 mls @ 200 mls/hr IVPB Q8H-IV [facility] Last Admin: 11/09/17 12:05 Dose: 200 mls/hr Levetiracetam (Keppra Injection -) 1,000 mg IVPB BID [facility] Last Admin: 11/09/17 09:17 Dose: 1,000 mg Mirtazapine (Remeron -) 30 mg PO DAILY [facility] Last Admin: 11/09/17 11:10 Dose: Not Given Ondansetron HCl (Zofran Injection) 4 mg IVPUSH Q6H PRN PRN Reason: NAUSEA AND/OR VOMITING Last Admin: 11/09/17 08:53 Dose: 4 mg Phenobarbital (Phenobarbital Injection -) 60 mg IVPB BID [facility] Last Admin: 11/09/17 11:02 Dose: 60 mg Senna (Senna Oral Solution -) 8.8 mg GT DAILY [facility] Last Admin: 11/09/17 11:10 Dose: Not Given Sodium Phosphate (Fleet Adult Rectal Enema -) 133 ml [place] TID PRN PRN Reason: CONSTIPATION Valproate Sodium (Depacon Injection -) 1,125 mg IVPB BID [facility] Last Admin: 11/08/17 21:37 Dose: 1,125 mg - Objective Vital Signs: Vital Signs Temperature 97.9 F 11/09/17 06:00 Pulse Rate 96 H 11/09/17 06:00 Respiratory Rate 20 11/09/17 06:00 Blood Pressure 116/64 11/09/17 06:00 O2 Sat by Pulse Oximetry (%) 98 11/09/17 02:00 Constitutional: Yes: No Distress, Calm Gastrointestinal: Yes: Normal Bowel Sounds, Soft, Distention. No: Rectal Bleeding, Tenderness, Tenderness, Epigastrium, Tenderness, Rebound, Vomiting Neurological: Yes: Oriented (self) Labs: CBC, BMP 11/08/17 08:40 11/09/17 07:45 INR, PTT INR 0.97 (0.82-1.09) 11/07/17 18:45 Abnormal Lab Results 11/09/17 07:45 Potassium 2.9 L* Anion Gap 7 L Creatinine 0.2 L Calcium 8.4 L AST 80 H D ALT 120 H D Alkaline Phosphatase 187 H D Albumin 2.4 L - ....Imaging X-ray: Report Reviewed Problem List - Problems (1) Distended abdomen Code(s): R14.0 - ABDOMINAL DISTENSION (GASEOUS) (2) Constipation Code(s): K59.00 - CONSTIPATION, UNSPECIFIED Assessment/Plan Miralax via PEG bid-tid
[2017-11-09] MEDS: VALPROATE SODIUM 500 MG/5 ML VIAL IVPB SCH ×2 (16:31→23:31)
--- NOTE | 2017-11-09 18:12 | CON.NEURO ---
Consult - History of Present Illness History of Present Illness: 47 y/o woman with a past medical history of [place]'s, Bipolar, Anxiety, Depression, CAD, Epilepsy, Anemia. who presents to the ED from [facility] for evaluation of projectile vomiting, fever, and tachycardia. As per ER records: the patient was admitted to [facility] for Sepsis, then d/c to [facility]. The patient has a PEG tube placed with recent confirmed CT demonstrating the PEG tube within the body is in place. The patient was given 2L NS for resuscitation, Tylenol IV for fever. being tretaed for possible bowel obstxn pt nonverbal --no further HX available; on keppra , depakote, phenobarb--no reported recent seizures elevated LFTS HD CT : Impression: No CT evidence of acute intracranial pathology. In comparison to an MRI study performed on 12/14/2008 note is made of increased generalized cerebral atrophy with corresponding increased ventricular dilatation. 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: Dementia, Seizure (Epilepsy), Other (Zohreh's) Cardio/Vascular: Yes: CAD Psych: Yes: Anxiety, Bipolar, Depression - Alcohol/Substance Use Hx Alcohol Use: No (unknown) History of Substance Use: reports: None - Smoking History Smoking history: Unknown if ever smoked - Social History ADL: Support Services History of Recent Travel: No Home Medications - Allergies Allergies/Adverse Reactions: Allergies Allergy/AdvReac Type Severity Reaction Status Date / Time No Known Allergies Allergy Verified 11/07/17 18:36 - Home Medications Home Medications: Ambulatory Orders Acetaminophen 650 mg GT Q6H PRN 11/07/17 Albuterol 0.083% Nebulizer Betsy [Ventolin 0.083% Nebulizer Soln -] 1 neb NEB Q6H 11/07/17 Bacitracin - [Bacitracin Topical Ointment -] 1 applic TP DAILY 11/07/17 Clonazepam 1 mg GT TID 11/07/17 Ferrous Sulfate *Liquid* [Feosol] 5 mg NGT DAILY 11/07/17 Fluticasone Prop 0.05% Nasal [Flonase -] 1 - 2 spray NS BID 11/07/17 Levetiracetam [Keppra Oral Solution -] 1,000 mg GT BID 11/07/17 Magnesium Hydroxide [Milk of Magnesia -] 30 ml [place] DAILY 11/07/17 Mirtazapine [Remeron -] 30 mg GT DAILY 11/07/17 Nystatin Cream [Mycostatin] 1 applic TP BID 11/07/17 Phenobarbital - 64.8 mg GT BID 11/07/17 Polyethylene Glycol 3350 [Miralax (For Bowel Prep) -] 17 gm [place] DAILY PRN Sennosides [Senna Concentrate] 8.6 mg GT DAILY 11/07/17 Sodium Phosphate,[place]-Dibasic [Fleet Enema] 133 ml [place] DAILY PRN 11/07/17 Triamcinolone 0.1% Cream [Aristocort] 1 applic TP BID 11/07/17 Valproate Sodium [Depakene] 1,125 mg GT BID 11/07/17 Physical Exam-Neuro Vital Signs: Vital Signs Temperature 98.4 F 11/09/17 15:59 Pulse Rate 110 H 11/09/17 15:59 Respiratory Rate 20 11/09/17 15:59 Blood Pressure 122/76 11/09/17 15:59 O2 Sat by Pulse Oximetry (%) 98 11/09/17 02:00 Labs: CBC, BMP 11/08/17 08:40 11/09/17 07:45 INR, PTT INR 0.97 (0.82-1.09) 11/07/17 18:45 - Neuro Exam Level Of Consciousness: Yes: Alert (eyes opne, though not following commands, dystonic posturing of head L, eye blinking and grimacing, spastic LE and UE, nonambulatory ) Imaging - Results Cat Scan: Report Reviewed, Image Reviewed Problem List - Problems (1) Dementia Code(s): F03.90 - UNSPECIFIED DEMENTIA WITHOUT BEHAVIORAL DISTURBANCE Qualifiers: Dementia type: unspecified type Dementia behavioral disturbance: with behavioral disturbance Qualified Code(s): F03.91 - Unspecified dementia with behavioral disturbance (2) Elevated LFTs Code(s): R79.89 - OTHER SPECIFIED ABNORMAL FINDINGS OF BLOOD CHEMISTRY (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 who presents to the ED from [facility] for evaluation of projectile vomiting, fever, and tachycardia. As per ER records: the patient was admitted to [facility] for Sepsis, then d/c to [facility]. The patient has a PEG tube placed with recent confirmed CT demonstrating the PEG tube within the body is in place. The patient was given 2L NS for resuscitation, Tylenol IV for fever. being treated for bowel obstxn pt nonverbal --no further HX available; on keppra , depakote, phenobarb--no reported recent seizures elevated LFTS HD CT : Impression: No CT evidence of acute intracranial pathology. In comparison to an MRI study performed on 12/14/2008 note is made of increased generalized cerebral atrophy with corresponding increased ventricular dilatation. PLN : continue epilepsy RX for now-- ? lFTs related to GI issue /bowel obstxn, less likely depkaote /phenobarb ; if LFTS continue to climb will reassess RX doses severe contracture/dytsonia EP--can consider tetrabenazine in [place] --RX approved for HD Dr Puente
[2017-11-10] MEDS ORDERED: LORazepam 2 MG/ML SDV VIAL ONE (02:12)
[2017-11-10] MEDS ORDERED: LORazepam 2 MG/ML SDV VIAL IM ONE (02:29)
[2017-11-10] MEDS: levETIRAcetam 500 MG/5 ML INJECTION VIAL IVPB SCH ×3 (02:32→21:40)
[2017-11-10] MEDS: VALPROATE SODIUM 500 MG/5 ML VIAL IVPB SCH ×3 (02:32→22:22)
--- NOTE | 2017-11-10 02:38 | HOSP ---
Subjective - Review of Symptoms Events since last encounter: called pt seizing. No iv access. attempted multiple times by floor nurse. Physical Examination Vital Signs: Vital Signs Temperature 98.0 F 11/10/17 01:51 Pulse Rate 102 H 11/10/17 01:51 Respiratory Rate 20 11/10/17 01:51 Blood Pressure 126/56 11/10/17 01:51 O2 Sat by Pulse Oximetry (%) 98 11/09/17 02:00 HENT: Yes: Other (noted with lips twitching, moaning, noncomprehensive sounds.) Cardiovascular: Yes: Regular Rate and Rhythm, S1, S2 Respiratory: Yes: CTA Bilaterally Gastrointestinal: Yes: Normal Bowel Sounds, Soft Labs: CBC, BMP 11/08/17 08:40 11/09/17 07:45 Hospitalist Encounter Assessment: seizure disorder - ativan 1mg IM while Attempting IV access. - angio cath placed #22g right foot, 2nd attempt. Good blood return. FLushed freely. (1st attempt right hand, obtained flash but catheter would not advance into vein-catheter removed, bleeding controlled with direct pressure) - will give additional 1mg ativan IVP if lips still twitching in 10min - nurse to administer keppra, depakon, phenobarb
[2017-11-10] MEDS ORDERED: PT OWN MED DRAWER 7, Y5N ONE (02:52)
[2017-11-10] MEDS: PHENobarbital SODIUM 65 MG/1 ML VIAL IVPB SCH ×3 (04:00→21:00)
[2017-11-10] MEDS: PIPERACILLIN/TAZOB 3.375 GM 3.375 GM in DEXTROSE 5%-WATER - 100 ML IVPB SCH ×4 (04:01→17:06)
[2017-11-10] MEDS: clonazePAM 0.5 MG TABLET GT SCH ×3 (05:36→21:00)
[2017-11-10] MEDS: DEXTROSE 5%-0.45% SALINE 1,000 ML IV SCH ×2 (05:36→17:06)
[2017-11-10 09:03] LABS: HEMOGLOBIN 10.6 GM/dL (10.7-15.3); MCH 28.9 pg (25.7-33.7); MCHC 32.1 g/dl (32.0-36.0); MEAN CELL VOLUME 90.1 fl (80-96); PLATELET COUNT 207 K/MM3 (134-434); RBC 3.66 M/mm3 (3.60-5.2); RDW 14.2 % (11.6-15.6); WHITE BLOOD COUNT 7.7 K/mm3 (4.0-10.0)
[2017-11-10] MEDS: SENNOSIDES 8.8 MG/5 ML BULK BOTTLE GT SCH (10:08)
[2017-11-10] MEDS: MIRTAZAPINE 30 MG TABLET (FP) PO SCH (10:08)
--- NOTE | 2017-11-10 13:46 | PN ---
Progress Note, Physician History of Present Illness: events noted from last night currently patient is stable calm - Current Medication List Current Medications: Active Medications Acetaminophen (Tylenol -) 650 mg PO Q6H PRN PRN Reason: FEVER OR PAIN Clonazepam (Klonopin -) 1 mg GT TID [facility] Last Admin: 11/10/17 05:36 Dose: Not Given Dextrose/Sodium Chloride (D5-1/2ns -) 1,000 mls @ 75 mls/hr IV ASDIR [facility] Last Admin: 11/10/17 05:36 Dose: Not Given Piperacillin Sod/Tazobactam (Sod 3.375 gm/ Dextrose) 100 mls @ 200 mls/hr IVPB Q8H-IV [facility] Last Admin: 11/10/17 10:08 Dose: 200 mls/hr Levetiracetam (Keppra Injection -) 1,000 mg IVPB BID [facility] Last Admin: 11/10/17 10:00 Dose: 1,000 mg Mirtazapine (Remeron -) 30 mg PO DAILY [facility] Last Admin: 11/10/17 10:08 Dose: Not Given Ondansetron HCl (Zofran Injection) 4 mg IVPUSH Q6H PRN PRN Reason: NAUSEA AND/OR VOMITING Last Admin: 11/09/17 08:53 Dose: 4 mg Phenobarbital (Phenobarbital Injection -) 60 mg IVPB BID [facility] Last Admin: 11/10/17 11:00 Dose: 60 mg Senna (Senna Oral Solution -) 8.8 mg GT DAILY [facility] Last Admin: 11/10/17 10:08 Dose: Not Given Sodium Phosphate (Fleet Adult Rectal Enema -) 133 ml [place] TID PRN PRN Reason: CONSTIPATION Valproate Sodium (Depacon Injection -) 1,125 mg IVPB BID [facility] Last Admin: 11/10/17 10:07 Dose: 1,125 mg - Objective Vital Signs: Vital Signs Temperature 97.9 F 11/10/17 09:07 Pulse Rate 93 H 11/10/17 09:07 Respiratory Rate 20 11/10/17 09:07 Blood Pressure 114/63 11/10/17 09:07 O2 Sat by Pulse Oximetry (%) 96 11/10/17 12:00 Constitutional: Yes: No Distress, Calm Cardiovascular: Yes: Regular Rate and Rhythm Respiratory: Yes: Regular, CTA Bilaterally Gastrointestinal: Yes: Soft, Hypoactive Bowel Sounds, Other (peg tube in place) Musculoskeletal: Yes: WNL Extremities: Yes: WNL Neurological: Yes: Alert, Other Labs: CBC, BMP 11/10/17 08:15 11/09/17 07:45 INR, PTT INR 0.97 (0.82-1.09) 11/07/17 18:45 Assessment/Plan Problem List - Problems (1) DVT prophylaxis Code(s): [id number] - (2) Dementia Code(s): F03.90 - UNSPECIFIED DEMENTIA WITHOUT BEHAVIORAL DISTURBANCE Qualifiers: Dementia type: unspecified type Dementia behavioral disturbance: with behavioral disturbance Qualified Code(s): F03.91 - Unspecified dementia with behavioral disturbance (3) Elevated LFTs Code(s): R79.89 - OTHER SPECIFIED ABNORMAL FINDINGS OF BLOOD CHEMISTRY (4) Epilepsy Code(s): G40.909 - EPILEPSY, UNSP, NOT INTRACTABLE, WITHOUT STATUS EPILEPTICUS Qualifiers: Partial seizure type: with complex partial seizures Intractability: intractable Status epilepticus: without status epilepticus (5) [place]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 7)intestinal obstruction i ahve looked at the xray i think patient probably has intestinal obstruction not complete her g tube is blocked and patient in discomfort d/w the nursing staff plan continue abx hydration rest as per primary team close watch for seizures neuro on case
[2017-11-10 14:14] LABS: LEVETIRACETAM (KEPPRA) 14.9 ug/mL (10.0-40.0)
[2017-11-10 16:01] LABS: ANION GAP 10 (8-16); BLOOD UREA NITROGEN 4 mg/dL (7-18); CALCIUM 8.2 mg/dL (8.5-10.1); CHLORIDE 104 mmol/L (98-107); CO2 26 mmol/L (21-32); CREATININE 0.2 mg/dL (0.55-1.02); GLUCOSE,RANDOM 76 mg/dL (74-106); SODIUM 140 mmol/L (136-145)
[2017-11-10] MEDS ORDERED: POTASSIUM CHLORIDE TABS 20 MEQ TABLET.ER (FP) PO ONE (17:27)
--- NOTE | 2017-11-10 17:44 | PN ---
Progress Note, Physician Chief Complaint: Nausea, vomiting, Constipation, Seizure History of Present Illness: overnight events noted seen by neurology yesterday head CT unremarkable seen by ID for leukocytosis, likely secondary to UTI, inflammatory rx last abd Xray showed decreased amount of stool - Current Medication List Current Medications: Active Medications Acetaminophen (Tylenol -) 650 mg PO Q6H PRN PRN Reason: FEVER OR PAIN Clonazepam (Klonopin -) 1 mg GT TID [facility] Last Admin: 11/10/17 14:07 Dose: Not Given Piperacillin Sod/Tazobactam (Sod 3.375 gm/ Dextrose) 100 mls @ 200 mls/hr IVPB Q8H-IV [facility] Last Admin: 11/10/17 17:06 Dose: 200 mls/hr Dextrose/Sodium Chloride (Dextrose 5%-Normal Saline+20 Meq Kcl -) 20 meq in 1, 000 mls @ 75 mls/hr IV ASDIR [facility] Potassium Chloride (Potassium Chloride 10 Meq Premix Ivpb -) 10 meq in 100 mls @ 100 mls/hr IVPB Q60M [facility] Stop: 11/10/17 20:44 Levetiracetam (Keppra Injection -) 1,000 mg IVPB BID [facility] Last Admin: 11/10/17 10:00 Dose: 1,000 mg Mirtazapine (Remeron -) 30 mg PO DAILY [facility] Last Admin: 11/10/17 10:08 Dose: Not Given Ondansetron HCl (Zofran Injection) 4 mg IVPUSH Q6H PRN PRN Reason: NAUSEA AND/OR VOMITING Last Admin: 11/09/17 08:53 Dose: 4 mg Phenobarbital (Phenobarbital Injection -) 60 mg IVPB BID [facility] Last Admin: 11/10/17 11:00 Dose: 60 mg Senna (Senna Oral Solution -) 8.8 mg GT DAILY [facility] Last Admin: 11/10/17 10:08 Dose: Not Given Sodium Phosphate (Fleet Adult Rectal Enema -) 133 ml [place] TID PRN PRN Reason: CONSTIPATION Valproate Sodium (Depacon Injection -) 1,125 mg IVPB BID [facility] Last Admin: 11/10/17 10:07 Dose: 1,125 mg - Objective Vital Signs: Vital Signs Temperature 97.8 F 11/10/17 17:22 Pulse Rate 101 H 11/10/17 17:22 Respiratory Rate 18 11/10/17 17:22 Blood Pressure 112/72 11/10/17 17:22 O2 Sat by Pulse Oximetry (%) 96 11/10/17 12:00 Constitutional: Yes: Well Nourished, No Distress, Calm Cardiovascular: Yes: Regular Rate and Rhythm Respiratory: Yes: Regular Gastrointestinal: Yes: WNL Genitourinary: Yes: WNL Labs: CBC, BMP 11/10/17 08:15 11/10/17 13:56 INR, PTT INR 0.97 (0.82-1.09) 11/07/17 18:45 Problem List - Problems (1) Constipation Assessment/Plan: -had large BM's yesterday after getting Enema -seen by GI-Abd Xray shows no abd obstruction, may use PEG, draining bile -miralax BID via PEG -RD consult for Tube feeding calculation, was receiving Jevity 1.2, hospital doesn't carry the feed. Code(s): K59.00 - CONSTIPATION, UNSPECIFIED (2) Distended abdomen Assessment/Plan: -mild Code(s): R14.0 - ABDOMINAL DISTENSION (GASEOUS) (3) Elevated LFTs Assessment/Plan: -vomiting? fasting? abx? -trending down -continue to monitor Code(s): R79.89 - OTHER SPECIFIED ABNORMAL FINDINGS OF BLOOD CHEMISTRY (4) Epilepsy Assessment/Plan: -Depakote,Phenobarb and kepra -neurology on board -Clonazepam Code(s): G40.909 - EPILEPSY, UNSP, NOT INTRACTABLE, WITHOUT STATUS EPILEPTICUS Qualifiers: Partial seizure type: with complex partial seizures Intractability: intractable Status epilepticus: without status epilepticus (5) [place] disease Code(s): G10 - ZOHREH'S DISEASE (6) Hypokalemia Assessment/Plan: -Improved -change IVF to D5LR+Kcl -KCL 40 mg via PEG Code(s): E87.6 - HYPOKALEMIA Assessment/Plan see problem list series of abdominal Xray
[2017-11-10] MEDS ORDERED: POTASSIUM CHLORIDE 30 MEQ in SODIUM CHLORIDE 300 ML IVPB ONE (17:45)
[2017-11-10] MEDS ORDERED: KCL 10 MEQ IVPB 10 MEQ/100 ML INFUS.BAG IVPB SCH (17:45)
[2017-11-10] MEDS ORDERED: POTASSIUM CHLORIDE ORAL LIQUID 20 MEQ/15 ML PO ONE (18:05)
[2017-11-10] MEDS: D5-NS + 20 MEQ KCL - 20 MEQ/1,000 ML INFUS.BAG IV SCH (18:52)
--- NOTE | 2017-11-10 19:14 | PN ---
Progress Note, Physician History of Present Illness: 47 y/o woman with a past medical history of Sierra's, Bipolar, Anxiety, Depression, CAD, Epilepsy, Anemia. who presents to the ED from [facility] for evaluation of projectile vomiting, fever, and tachycardia. As per ER records: the patient was admitted to [facility] for Sepsis, then d/c to [facility]. The patient has a PEG tube placed with recent confirmed CT demonstrating the PEG tube within the body is in place. The patient was given 2L NS for resuscitation, Tylenol IV for fever. being tretaed for possible bowel obstxn pt nonverbal --no further HX available; on keppra , depakote, phenobarb--no reported recent seizures elevated LFTS HD CT : Impression: No CT evidence of acute intracranial pathology. In comparison to an MRI study performed on 12/14/2008 note is made of increased generalized cerebral atrophy with corresponding increased ventricular dilatation. F/U today; No improvement in MS , no new changes. - Current Medication List Current Medications: Active Medications Acetaminophen (Tylenol -) 650 mg PO Q6H PRN PRN Reason: FEVER OR PAIN Clonazepam (Klonopin -) 1 mg GT TID [facility] Last Admin: 11/10/17 14:07 Dose: Not Given Piperacillin Sod/Tazobactam (Sod 3.375 gm/ Dextrose) 100 mls @ 200 mls/hr IVPB Q8H-IV JOHN Last Admin: 11/10/17 17:06 Dose: 200 mls/hr Dextrose/Sodium Chloride (Dextrose 5%-Normal Saline+20 Meq Kcl -) 20 meq in 1, 000 mls @ 75 mls/hr IV ASDIR [facility] Last Admin: 11/10/17 18:52 Dose: 75 mls/hr Levetiracetam (Keppra Injection -) 1,000 mg IVPB BID [facility] Last Admin: 11/10/17 10:00 Dose: 1,000 mg Mirtazapine (Remeron -) 30 mg PO DAILY [facility] Last Admin: 11/10/17 10:08 Dose: Not Given Ondansetron HCl (Zofran Injection) 4 mg IVPUSH Q6H PRN PRN Reason: NAUSEA AND/OR VOMITING Last Admin: 11/09/17 08:53 Dose: 4 mg Phenobarbital (Phenobarbital Injection -) 60 mg IVPB BID [facility] Last Admin: 11/10/17 11:00 Dose: 60 mg Polyethylene Glycol (Miralax (For Daily Use) -) 17 gm PO BID [facility] Senna (Senna Oral Solution -) 8.8 mg GT DAILY [facility] Last Admin: 11/10/17 10:08 Dose: Not Given Sodium Phosphate (Fleet Adult Rectal Enema -) 133 ml [place] TID PRN PRN Reason: CONSTIPATION Valproate Sodium (Depacon Injection -) 1,125 mg IVPB BID [facility] Last Admin: 11/10/17 10:07 Dose: 1,125 mg - Objective Vital Signs: Vital Signs Temperature 97.8 F 11/10/17 17:22 Pulse Rate 101 H 11/10/17 17:22 Respiratory Rate 18 11/10/17 17:22 Blood Pressure 112/72 11/10/17 17:22 O2 Sat by Pulse Oximetry (%) 96 11/10/17 12:00 Labs: CBC, BMP 11/10/17 08:15 11/10/17 13:56 INR, PTT INR 0.97 (0.82-1.09) 11/07/17 18:45 Assessment/Plan - Past Medical History 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: Yes: Dementia, Seizure (Epilepsy), Other (Sierra's) Cardio/Vascular: Yes: CAD Psych: Yes: Anxiety, Bipolar, Depression - Alcohol/Substance Use Hx Alcohol Use: No (unknown) History of Substance Use: reports: None - Smoking History Smoking history: Unknown if ever smoked - Social History ADL: Support Services History of Recent Travel: No Home Medications - Allergies Allergies/Adverse Reactions: Allergies Allergy/AdvReac Type Severity Reaction Status Date / Time No Known Allergies Allergy Verified 11/07/17 18:36 - Home Medications Home Medications: Ambulatory Orders Acetaminophen 650 mg GT Q6H PRN 11/07/17 Albuterol 0.083% Nebulizer Betsy [Ventolin 0.083% Nebulizer Soln -] 1 neb NEB Q6H 11/07/17 Bacitracin - [Bacitracin Topical Ointment -] 1 applic TP DAILY 11/07/17 Clonazepam 1 mg GT TID 11/07/17 Ferrous Sulfate *Liquid* [Feosol] 5 mg NGT DAILY 11/07/17 Fluticasone Prop 0.05% Nasal [Flonase -] 1 - 2 spray NS BID 11/07/17 Levetiracetam [Keppra Oral Solution -] 1,000 mg GT BID 11/07/17 Magnesium Hydroxide [Milk of Magnesia -] 30 ml GT DAILY 11/07/17 Mirtazapine [Remeron -] 30 mg GT DAILY 11/07/17 Nystatin Cream [Mycostatin] 1 applic TP BID 11/07/17 Phenobarbital - 64.8 mg GT BID 11/07/17 Polyethylene Glycol 3350 [Miralax (For Bowel Prep) -] 17 gm GT DAILY PRN Sennosides [Senna Concentrate] 8.6 mg GT DAILY 11/07/17 Sodium Phosphate,[place]-Dibasic [Fleet Enema] 133 ml [place] DAILY PRN 11/07/17 Triamcinolone 0.1% Cream [Aristocort] 1 applic TP BID 11/07/17 Valproate Sodium [Depakene] 1,125 mg GT BID 11/07/17 Physical Exam-Neuro Vital Signs: Vital Signs Temperature 98.4 F 11/09/17 15:59 Pulse Rate 110 H 11/09/17 15:59 Respiratory Rate 20 11/09/17 15:59 Blood Pressure 122/76 11/09/17 15:59 O2 Sat by Pulse Oximetry (%) 98 11/09/17 02:00 Labs: CBC, BMP 11/08/17 08:40 11/09/17 07:45 INR, PTT INR 0.97 (0.82-1.09) 11/07/17 18:45 - Neuro Exam Level Of Consciousness: Yes: Alert (eyes opne, though not following commands, dystonic posturing of head L, eye blinking and grimacing, spastic LE and UE, nonambulatory ) Imaging - Results Cat Scan: Report Reviewed, Image Reviewed Problem List - Problems (1) Dementia Code(s): F03.90 - UNSPECIFIED DEMENTIA WITHOUT BEHAVIORAL DISTURBANCE Qualifiers: Dementia type: unspecified type Dementia behavioral disturbance: with behavioral disturbance Qualified Code(s): F03.91 - Unspecified dementia with behavioral disturbance (2) Elevated LFTs Code(s): R79.89 - OTHER SPECIFIED ABNORMAL FINDINGS OF BLOOD CHEMISTRY (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 who presents to the ED from [facility] for evaluation of projectile vomiting, fever, and tachycardia. As per ER records: the patient was admitted to [facility] for Sepsis, then d/c to [facility]. The patient has a PEG tube placed with recent confirmed CT demonstrating the PEG tube within the body is in place. The patient was given 2L NS for resuscitation, Tylenol IV for fever. being treated for bowel obstxn ; pt nonverbal --no further HX available; on keppra , depakote, phenobarb--no reported recent seizures ; elevated LFTS HD CT : No acute events. Plan: continue epilepsy RX for now-- ? lFTs related to GI issue /bowel obstxn, less likely depkaote /phenobarb ; if LFTS continue to climb will reassess RX doses severe contracture/dytsonia EP--can consider tetrabenazine in [place] --RX approved for HD. Health maintenance per primary team. Thank you. Allen Hwang MD
[2017-11-10] MEDS ORDERED: SODIUM PHOSPHATE/NA BIPHOS 133 ML ENEMA PR PRN (19:35)
[2017-11-10] MEDS: POLYETHYLENE GLYCOL 3350 119 GM BTL PO SCH (21:00)
[2017-11-11] MEDS ORDERED: PT OWN MED DRAWER 7, Y5N ONE ×2 (01:08→21:21)
[2017-11-11] MEDS: PIPERACILLIN/TAZOB 3.375 GM 3.375 GM in DEXTROSE 5%-WATER - 100 ML IVPB SCH ×2 (01:20→09:44)
[2017-11-11] MEDS: clonazePAM 0.5 MG TABLET GT SCH ×3 (05:34→22:06)
[2017-11-11 08:17] LABS: BASO % 0.4 % (0-2.0); EOS % 3.9 % (0-4.5); HEMATOCRIT 34.2 % (32.4-45.2); LYMPH % 23.2 % (8-40); MCH 28.7 pg (25.7-33.7); MCHC 32.2 g/dl (32.0-36.0); MEAN CELL VOLUME 89.1 fl (80-96); MEAN PLT VOLUME 9.5 fl (7.5-11.1); MONO % 5.7 % (3.8-10.2); NEUT % 66.8 % (42.8-82.8); PLATELET COUNT 183 K/MM3 (134-434); RBC 3.84 M/mm3 (3.60-5.2); RDW 14.3 % (11.6-15.6); WHITE BLOOD COUNT 5.2 K/mm3 (4.0-10.0)
[2017-11-11 09:13] LABS: ALBUMIN 2.2 g/dl (3.4-5.0); ANION GAP 9 (8-16); CHLORIDE 102 mmol/L (98-107); CO2 27 mmol/L (21-32); CREATININE < 0.2 mg/dL (0.55-1.02); GLUCOSE,RANDOM 86 mg/dL (74-106); POTASSIUM 3.1 mmol/L (3.5-5.1); SGOT/AST 35 U/L (15-37); SGPT/ALT 64 U/L (12-78); SODIUM 138 mmol/L (136-145)
[2017-11-11 09:15] LABS: ALK PHOS 177 U/L (45-117); BILIRUBIN,TOTAL 0.3 mg/dL (0.2-1.0); TOT PROT 5.9 g/dl (6.4-8.2)
[2017-11-11 09:18] LABS: BLOOD UREA NITROGEN 1 mg/dL (7-18)
[2017-11-11] MEDS: PHENobarbital SODIUM 65 MG/1 ML VIAL IVPB SCH ×2 (09:44→22:07)
[2017-11-11] MEDS: MIRTAZAPINE 30 MG TABLET (FP) PO SCH (09:44)
[2017-11-11] MEDS: SENNOSIDES 8.8 MG/5 ML BULK BOTTLE GT SCH (09:45)
[2017-11-11] MEDS: levETIRAcetam 500 MG/5 ML INJECTION VIAL IVPB SCH ×2 (09:45→22:05)
[2017-11-11] MEDS: VALPROATE SODIUM 500 MG/5 ML VIAL IVPB SCH ×2 (09:45→23:09)
[2017-11-11] MEDS: POLYETHYLENE GLYCOL 3350 119 GM BTL PO SCH ×2 (09:47→22:06)
[2017-11-11] MEDS: D5-NS + 20 MEQ KCL - 20 MEQ/1,000 ML INFUS.BAG IV SCH (12:12)
[2017-11-11] MEDS ORDERED: KCL 10 MEQ IVPB 10 MEQ/100 ML INFUS.BAG IVPB SCH (13:00)
[2017-11-11] MEDS ORDERED: POTASSIUM CHLORIDE 30 MEQ in SODIUM CHLORIDE 300 ML IVPB ONE (13:00)
--- NOTE | 2017-11-11 14:21 | PN ---
Progress Note, Physician History of Present Illness: patient doing well calm no issues g tube functioning well no bowel movement - Current Medication List Current Medications: Active Medications Acetaminophen (Tylenol -) 650 mg PO Q6H PRN PRN Reason: FEVER OR PAIN Clonazepam (Klonopin -) 1 mg GT TID [facility] Last Admin: 11/11/17 13:40 Dose: 1 mg Dextrose/Sodium Chloride (Dextrose 5%-Normal Saline+20 Meq Kcl -) 20 meq in 1, 000 mls @ 75 mls/hr IV ASDIR [facility] Last Admin: 11/11/17 12:12 Dose: 75 mls/hr Potassium Chloride 30 meq/ (Sodium Chloride) 315 mls @ 105 mls/hr IVPB ONCE ONE Stop: 11/11/17 15:59 Last Admin: 11/11/17 14:08 Dose: 105 mls/hr Levetiracetam (Keppra Injection -) 1,000 mg IVPB BID [facility] Last Admin: 11/11/17 09:45 Dose: 1,000 mg Mirtazapine (Remeron -) 30 mg PO DAILY [facility] Last Admin: 11/11/17 09:44 Dose: 30 mg Ondansetron HCl (Zofran Injection) 4 mg IVPUSH Q6H PRN PRN Reason: NAUSEA AND/OR VOMITING Last Admin: 11/09/17 08:53 Dose: 4 mg Phenobarbital (Phenobarbital Injection -) 60 mg IVPB BID [facility] Last Admin: 11/11/17 09:44 Dose: 60 mg Polyethylene Glycol (Miralax (For Daily Use) -) 17 gm PO BID [facility] Last Admin: 11/11/17 09:47 Dose: 17 gm Senna (Senna Oral Solution -) 8.8 mg GT DAILY [facility] Last Admin: 11/11/17 09:45 Dose: 5 ml Sodium Phosphate (Fleet Adult Rectal Enema -) 133 ml [place] DAILY PRN PRN Reason: CONSTIPATION Valproate Sodium (Depacon Injection -) 1,125 mg IVPB BID [facility] Last Admin: 11/11/17 09:45 Dose: 1,125 mg - Objective Vital Signs: Vital Signs Temperature 98.2 F 11/11/17 09:00 Pulse Rate 87 11/11/17 09:00 Respiratory Rate 18 11/11/17 09:00 Blood Pressure 114/67 11/11/17 09:00 O2 Sat by Pulse Oximetry (%) 98 11/11/17 09:00 Constitutional: Yes: No Distress, Calm Cardiovascular: Yes: Regular Rate and Rhythm Respiratory: Yes: Regular, CTA Bilaterally Gastrointestinal: Yes: Normal Bowel Sounds, Soft, Distention, Other (peg in place) Musculoskeletal: Yes: WNL Extremities: Yes: WNL Neurological: Yes: Alert, Other Psychiatric: Yes: Other Labs: CBC, BMP 11/11/17 06:00 11/11/17 06:00 INR, PTT INR 0.97 (0.82-1.09) 11/07/17 18:45 Assessment/Plan Problem List - Problems (1) DVT prophylaxis Code(s): [id number] - (2) Dementia Code(s): F03.90 - UNSPECIFIED DEMENTIA WITHOUT BEHAVIORAL DISTURBANCE Qualifiers: Dementia type: unspecified type Dementia behavioral disturbance: with behavioral disturbance Qualified Code(s): F03.91 - Unspecified dementia with behavioral disturbance (3) Elevated LFTs Code(s): R79.89 - OTHER SPECIFIED ABNORMAL FINDINGS OF BLOOD CHEMISTRY (4) Epilepsy Code(s): G40.909 - EPILEPSY, UNSP, NOT INTRACTABLE, WITHOUT STATUS EPILEPTICUS Qualifiers: Partial seizure type: with complex partial seizures Intractability: intractable Status epilepticus: without status epilepticus (5) [place]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 7)intestinal obstruction i ahve looked at the xray i think patient probably has intestinal obstruction not complete her g tube is blocked and patient in discomfort d/w the nursing staff plan patient has completed 5 days of abx will stop and watch close monitoring rest as per primary team
--- NOTE | 2017-11-11 19:21 | PN ---
Progress Note, Physician Chief Complaint: Nausea, vomiting, Constipation, Seizure History of Present Illness: -seen by Neurology head CT unremarkable seen by ID for leukocytosis, likely secondary to UTI, inflammatory rx last abd Xray showed decreased amount of stool - Current Medication List Current Medications: Active Medications Acetaminophen (Tylenol -) 650 mg PO Q6H PRN PRN Reason: FEVER OR PAIN Clonazepam (Klonopin -) 1 mg GT TID [facility] Last Admin: 11/11/17 13:40 Dose: 1 mg Dextrose/Sodium Chloride (Dextrose 5%-Normal Saline+20 Meq Kcl -) 20 meq in 1, 000 mls @ 75 mls/hr IV ASDIR [facility] Last Admin: 11/11/17 12:12 Dose: 75 mls/hr Levetiracetam (Keppra Injection -) 1,000 mg IVPB BID [facility] Last Admin: 11/11/17 09:45 Dose: 1,000 mg Mirtazapine (Remeron -) 30 mg PO DAILY [facility] Last Admin: 11/11/17 09:44 Dose: 30 mg Ondansetron HCl (Zofran Injection) 4 mg IVPUSH Q6H PRN PRN Reason: NAUSEA AND/OR VOMITING Last Admin: 11/09/17 08:53 Dose: 4 mg Phenobarbital (Phenobarbital Injection -) 60 mg IVPB BID [facility] Last Admin: 11/11/17 09:44 Dose: 60 mg Polyethylene Glycol (Miralax (For Daily Use) -) 17 gm PO BID [facility] Last Admin: 11/11/17 09:47 Dose: 17 gm Senna (Senna Oral Solution -) 8.8 mg GT DAILY [facility] Last Admin: 11/11/17 09:45 Dose: 5 ml Sodium Phosphate (Fleet Adult Rectal Enema -) 133 ml [place] DAILY PRN PRN Reason: CONSTIPATION Valproate Sodium (Depacon Injection -) 1,125 mg IVPB BID [facility] Last Admin: 11/11/17 09:45 Dose: 1,125 mg - Objective Vital Signs: Vital Signs Temperature 97.9 F 11/11/17 18:23 Pulse Rate 78 11/11/17 18:23 Respiratory Rate 18 11/11/17 18:23 Blood Pressure 118/80 11/11/17 18:23 O2 Sat by Pulse Oximetry (%) 98 11/11/17 09:00 Constitutional: Yes: Well Nourished, No Distress, Calm Cardiovascular: Yes: Regular Rate and Rhythm Respiratory: Yes: Regular Musculoskeletal: Yes: WNL Extremities: Yes: WNL Edema: No Peripheral Pulses WNL: Yes Neurological: Yes: Pre-Existing Deficit Labs: CBC, BMP 11/11/17 06:00 11/11/17 06:00 INR, PTT INR 0.97 (0.82-1.09) 11/07/17 18:45 Problem List - Problems (1) Constipation Assessment/Plan: -had large BM's after getting Enema -seen by GI-Abd Xray shows no abd obstruction, may use PEG, draining bile -miralax BID via PEG -RD consult for Tube feeding calculation, was receiving Jevity 1.2, hospital doesn't carry the feed. Code(s): K59.00 - CONSTIPATION, UNSPECIFIED (2) Distended abdomen Assessment/Plan: -mild Code(s): R14.0 - ABDOMINAL DISTENSION (GASEOUS) (3) Elevated LFTs Assessment/Plan: -vomiting? fasting? abx? -trending down -continue to monitor Code(s): R79.89 - OTHER SPECIFIED ABNORMAL FINDINGS OF BLOOD CHEMISTRY (4) Epilepsy Assessment/Plan: -Depakote,Phenobarb and kepra -neurology on board -Clonazepam Code(s): G40.909 - EPILEPSY, UNSP, NOT INTRACTABLE, WITHOUT STATUS EPILEPTICUS Qualifiers: Partial seizure type: with complex partial seizures Intractability: intractable Status epilepticus: without status epilepticus (5) [place] disease Code(s): G10 - ZOHREH'S DISEASE (6) Hypokalemia Assessment/Plan: -Improved -change IVF to D5LR+Kcl -KCL 30 mg via IV -repeat labs in AM Code(s): E87.6 - HYPOKALEMIA Assessment/Plan see problem list series of abdominal Xray
[2017-11-12] MEDS: clonazePAM 0.5 MG TABLET GT SCH ×3 (05:51→22:57)
[2017-11-12] MEDS: D5-NS + 20 MEQ KCL - 20 MEQ/1,000 ML INFUS.BAG IV SCH (05:53)
[2017-11-12 08:55] LABS: BASO % 0.4 % (0-2.0); EOS % 3.3 % (0-4.5); HEMATOCRIT 36.1 % (32.4-45.2); HEMOGLOBIN 11.6 GM/dL (10.7-15.3); LYMPH % 26.1 % (8-40); MCH 28.7 pg (25.7-33.7); MCHC 32.1 g/dl (32.0-36.0); MEAN CELL VOLUME 89.4 fl (80-96); MEAN PLT VOLUME 9.4 fl (7.5-11.1); MONO % 6.1 % (3.8-10.2); NEUT % 64.1 % (42.8-82.8); PLATELET COUNT 176 K/MM3 (134-434); RBC 4.04 M/mm3 (3.60-5.2); RDW 14.6 % (11.6-15.6); WHITE BLOOD COUNT 7.1 K/mm3 (4.0-10.0)
[2017-11-12 09:28] LABS: ALBUMIN 2.4 g/dl (3.4-5.0); ANION GAP 11 (8-16); CALCIUM 8.7 mg/dL (8.5-10.1); CHLORIDE 103 mmol/L (98-107); CO2 27 mmol/L (21-32); CREATININE < 0.2 mg/dL (0.55-1.02); GLUCOSE,RANDOM 87 mg/dL (74-106); POTASSIUM 3.2 mmol/L (3.5-5.1); SGOT/AST 45 U/L (15-37); SGPT/ALT 73 U/L (12-78); SODIUM 141 mmol/L (136-145)
[2017-11-12 09:30] LABS: ALK PHOS 188 U/L (45-117); BILIRUBIN,TOTAL 0.3 mg/dL (0.2-1.0); TOT PROT 6.4 g/dl (6.4-8.2)
[2017-11-12] MEDS: levETIRAcetam 500 MG/5 ML INJECTION VIAL IVPB SCH (09:56)
[2017-11-12] MEDS: MIRTAZAPINE 30 MG TABLET (FP) PO SCH (09:57)
[2017-11-12] MEDS: SENNOSIDES 8.8 MG/5 ML BULK BOTTLE GT SCH (09:57)
[2017-11-12 10:56] LABS: BLOOD UREA NITROGEN < 1 mg/dL (7-18)
[2017-11-12] MEDS: PHENobarbital SODIUM 65 MG/1 ML VIAL IVPB SCH (10:56)
[2017-11-12] MEDS: VALPROATE SODIUM 500 MG/5 ML VIAL IVPB SCH (11:51)
--- NOTE | 2017-11-12 12:51 | PN ---
Progress Note, Physician - Current Medication List Current Medications: Active Medications Acetaminophen (Tylenol -) 650 mg PO Q6H PRN PRN Reason: FEVER OR PAIN Clonazepam (Klonopin -) 1 mg GT TID [facility] Last Admin: 11/12/17 05:51 Dose: 1 mg Dextrose/Sodium Chloride (Dextrose 5%-Normal Saline+20 Meq Kcl -) 20 meq in 1, 000 mls @ 75 mls/hr IV ASDIR [facility] Last Admin: 11/12/17 05:53 Dose: 75 mls/hr Levetiracetam (Keppra Injection -) 1,000 mg IVPB BID [facility] Last Admin: 11/12/17 09:56 Dose: 1,000 mg Mirtazapine (Remeron -) 30 mg PO DAILY [facility] Last Admin: 11/12/17 09:57 Dose: 30 mg Ondansetron HCl (Zofran Injection) 4 mg IVPUSH Q6H PRN PRN Reason: NAUSEA AND/OR VOMITING Last Admin: 11/09/17 08:53 Dose: 4 mg Phenobarbital (Phenobarbital Injection -) 60 mg IVPB BID [facility] Last Admin: 11/12/17 10:56 Dose: 60 mg Polyethylene Glycol (Miralax (For Daily Use) -) 17 gm PO BID [facility] Last Admin: 11/11/17 22:06 Dose: 17 gm Senna (Senna Oral Solution -) 8.8 mg GT DAILY [facility] Last Admin: 11/12/17 09:57 Dose: 5 ml Sodium Phosphate (Fleet Adult Rectal Enema -) 133 ml [place] DAILY PRN PRN Reason: CONSTIPATION Last Admin: 11/11/17 19:45 Dose: 133 ml Valproate Sodium (Depacon Injection -) 1,125 mg IVPB BID [facility] Last Admin: 11/12/17 11:51 Dose: 1,125 mg - Objective Vital Signs: Vital Signs Temperature 98.5 F 11/12/17 07:38 Pulse Rate 89 11/12/17 07:38 Respiratory Rate 20 11/12/17 07:38 Blood Pressure 121/77 11/12/17 07:38 O2 Sat by Pulse Oximetry (%) 100 11/12/17 09:00 Cardiovascular: Yes: S1, S2 Respiratory: Yes: Rhonchi Gastrointestinal: Yes: Soft, Distention, Hypoactive Bowel Sounds Labs: CBC, BMP 11/12/17 08:10 11/12/17 08:10 INR, PTT INR 0.97 (0.82-1.09) 11/07/17 18:45 Assessment/Plan -- Problems (1) Constipation Assessment/Plan: -had large BM's after getting Enema-repeat -seen by GI-Abd Xray shows no abd obstruction--possible ileus -miralax BID via PEG -RD consult for Tube feeding calculation, was receiving Jevity 1.2, hospital doesn't carry the feed. Code(s): K59.00 - CONSTIPATION, UNSPECIFIED (2) Distended abdomen Assessment/Plan: -mild Code(s): R14.0 - ABDOMINAL DISTENSION (GASEOUS) (3) Elevated LFTs Assessment/Plan: -vomiting? fasting? abx? 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
[2017-11-12] MEDS: POLYETHYLENE GLYCOL 3350 119 GM BTL PO SCH ×2 (13:42→22:57)
[2017-11-12] MEDS ORDERED: KCL 10 MEQ IVPB 10 MEQ/100 ML INFUS.BAG IVPB SCH (14:45)
[2017-11-12] MEDS ORDERED: POTASSIUM CHLORIDE 20 MEQ in SODIUM CHLORIDE 250 ML IVPB ONE (15:00)
--- NOTE | 2017-11-12 15:05 | PN ---
Progress Note, Physician History of Present Illness: patient calm comfortable - Current Medication List Current Medications: Active Medications Acetaminophen (Tylenol -) 650 mg PO Q6H PRN PRN Reason: FEVER OR PAIN Albuterol/Ipratropium (Duoneb -) 1 amp NEB QIDR [facility] Clonazepam (Klonopin -) 1 mg GT TID [facility] Last Admin: 11/12/17 13:42 Dose: 1 mg Dextrose/Sodium Chloride (Dextrose 5%-Normal Saline+20 Meq Kcl -) 20 meq in 1, 000 mls @ 75 mls/hr IV ASDIR [facility] Last Admin: 11/12/17 05:53 Dose: 75 mls/hr Potassium Chloride 20 meq/ (Sodium Chloride) 260 mls @ 130 mls/hr IVPB ONCE ONE Stop: 11/12/17 16:59 Levetiracetam (Keppra Injection -) 1,000 mg IVPB BID [facility] Last Admin: 11/12/17 09:56 Dose: 1,000 mg Mirtazapine (Remeron -) 30 mg PO DAILY [facility] Last Admin: 11/12/17 09:57 Dose: 30 mg Ondansetron HCl (Zofran Injection) 4 mg IVPUSH Q6H PRN PRN Reason: NAUSEA AND/OR VOMITING Last Admin: 11/09/17 08:53 Dose: 4 mg Phenobarbital (Phenobarbital Injection -) 60 mg IVPB BID [facility] Last Admin: 11/12/17 10:56 Dose: 60 mg Polyethylene Glycol (Miralax (For Daily Use) -) 17 gm PO BID [facility] Last Admin: 11/12/17 13:42 Dose: 17 gm Senna (Senna Oral Solution -) 8.8 mg GT DAILY [facility] Last Admin: 11/12/17 09:57 Dose: 5 ml Sodium Phosphate (Fleet Adult Rectal Enema -) 133 ml [place] DAILY PRN PRN Reason: CONSTIPATION Last Admin: 11/11/17 19:45 Dose: 133 ml Valproate Sodium (Depacon Injection -) 1,125 mg IVPB BID [facility] Last Admin: 11/12/17 11:51 Dose: 1,125 mg - Objective Vital Signs: Vital Signs Temperature 97.9 F 11/12/17 14:28 Pulse Rate 84 11/12/17 14:28 Respiratory Rate 20 11/12/17 14:28 Blood Pressure 129/79 11/12/17 14:28 O2 Sat by Pulse Oximetry (%) 100 11/12/17 09:00 Constitutional: Yes: No Distress, Calm Cardiovascular: Yes: Regular Rate and Rhythm Respiratory: Yes: Regular, CTA Bilaterally Gastrointestinal: Yes: Distention, Hypoactive Bowel Sounds, Other (peg in place) Musculoskeletal: Yes: WNL Extremities: Yes: WNL Neurological: Yes: Alert, Other Labs: CBC, BMP 11/12/17 08:10 11/12/17 08:10 INR, PTT INR 0.97 (0.82-1.09) 11/07/17 18:45 - ....Imaging X-ray: Report Reviewed, Image Reviewed Assessment/Plan Problem List - Problems (1) DVT prophylaxis Code(s): [id number] - (2) Dementia Code(s): F03.90 - UNSPECIFIED DEMENTIA WITHOUT BEHAVIORAL DISTURBANCE Qualifiers: Dementia type: unspecified type Dementia behavioral disturbance: with behavioral disturbance Qualified Code(s): F03.91 - Unspecified dementia with behavioral disturbance (3) Elevated LFTs Code(s): R79.89 - OTHER SPECIFIED ABNORMAL FINDINGS OF BLOOD CHEMISTRY (4) Epilepsy Code(s): G40.909 - EPILEPSY, UNSP, NOT INTRACTABLE, WITHOUT STATUS EPILEPTICUS Qualifiers: Partial seizure type: with complex partial seizures Intractability: intractable Status epilepticus: without status epilepticus (5) [place]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 7)intestinal obstruction patients repeat xray showing ileus pattern plan will continue to monitor off of abx close watch on the bowel as she is showing ileus pattern hydration rest as per primary team
[2017-11-12] MEDS: ALBUTEROL SO4 2.5/IPRATROPIUM 0.5 INH SOL 3 ML VIAL.NEB. NEB SCH (18:09)
[2017-11-12] MEDS: VALPROATE SODIUM 250 MG/5 ML UNIT DOSE CUP GT SCH (22:57)
[2017-11-12] MEDS: levETIRAcetam 500 MG/5 ML ORAL SOLUTION (UNIT-DOSE CUPS) GT SCH (22:57)
[2017-11-12] MEDS: PHENobarbital 20 MG/5 ML UNIT-DOSE CUP GT SCH (23:00)
[2017-11-13] MEDS: ALBUTEROL SO4 2.5/IPRATROPIUM 0.5 INH SOL 3 ML VIAL.NEB. NEB SCH ×4 (00:10→17:26)
[2017-11-13] MEDS: D5-NS + 20 MEQ KCL - 20 MEQ/1,000 ML INFUS.BAG IV SCH ×2 (01:21→09:37)
[2017-11-13] MEDS: clonazePAM 0.5 MG TABLET GT SCH ×2 (05:50→13:58)
[2017-11-13 07:04] LABS: BASO % 0.4 % (0-2.0); EOS % 3.2 % (0-4.5); HEMATOCRIT 39.4 % (32.4-45.2); HEMOGLOBIN 12.7 GM/dL (10.7-15.3); LYMPH % 27.3 % (8-40); MCH 28.8 pg (25.7-33.7); MCHC 32.2 g/dl (32.0-36.0); MEAN CELL VOLUME 89.5 fl (80-96); MEAN PLT VOLUME 9.7 fl (7.5-11.1); MONO % 5.3 % (3.8-10.2); NEUT % 63.8 % (42.8-82.8); PLATELET COUNT 167 K/MM3 (134-434); RBC 4.41 M/mm3 (3.60-5.2); RDW 14.7 % (11.6-15.6); WHITE BLOOD COUNT 6.2 K/mm3 (4.0-10.0)
[2017-11-13 07:23] LABS: ALBUMIN 2.5 g/dl (3.4-5.0); ALK PHOS 205 U/L (45-117); ANION GAP 7 (8-16); BILIRUBIN,TOTAL 0.2 mg/dL (0.2-1.0); CALCIUM 7.1 mg/dL (8.5-10.1); CHLORIDE 103 mmol/L (98-107); CO2 28 mmol/L (21-32); CREATININE 0.2 mg/dL (0.55-1.02); GLUCOSE,RANDOM 81 mg/dL (74-106); MAGNESIUM 1.6 mg/dL (1.8-2.4); POTASSIUM 3.9 mmol/L (3.5-5.1); SGOT/AST 24 U/L (15-37); SGPT/ALT 60 U/L (12-78); SODIUM 138 mmol/L (136-145); TOT PROT 6.5 g/dl (6.4-8.2)
[2017-11-13 08:07] LABS: BLOOD UREA NITROGEN 1 mg/dL (7-18)
[2017-11-13] MEDS: VALPROATE SODIUM 250 MG/5 ML UNIT DOSE CUP GT SCH (09:37)
[2017-11-13] MEDS: PHENobarbital 20 MG/5 ML UNIT-DOSE CUP GT SCH (09:39)
[2017-11-13] MEDS: POLYETHYLENE GLYCOL 3350 119 GM BTL PO SCH (09:47)
[2017-11-13] MEDS: SENNOSIDES 8.8 MG/5 ML BULK BOTTLE GT SCH (09:47)
[2017-11-13] MEDS: MIRTAZAPINE 30 MG TABLET (FP) PO SCH (09:48)
--- NOTE | 2017-11-13 09:50 | PN ---
Progress Note, Physician History of Present Illness: clinically patient is stable still with abd distension - Current Medication List Current Medications: Active Medications Acetaminophen (Tylenol -) 650 mg PO Q6H PRN PRN Reason: FEVER OR PAIN Albuterol/Ipratropium (Duoneb -) 1 amp NEB QIDR [facility] Last Admin: 11/13/17 06:53 Dose: 1 amp Clonazepam (Klonopin -) 1 mg GT TID [facility] Last Admin: 11/13/17 05:50 Dose: 1 mg Dextrose/Sodium Chloride (Dextrose 5%-Normal Saline+20 Meq Kcl -) 20 meq in 1, 000 mls @ 75 mls/hr IV ASDIR [facility] Last Admin: 11/13/17 01:21 Dose: 75 mls/hr Levetiracetam (Keppra Oral Solution -) 1,000 mg GT BID [facility] Last Admin: 11/12/17 22:57 Dose: 1,000 mg Mirtazapine (Remeron -) 30 mg PO DAILY [facility] Last Admin: 11/12/17 09:57 Dose: 30 mg Ondansetron HCl (Zofran Injection) 4 mg IVPUSH Q6H PRN PRN Reason: NAUSEA AND/OR VOMITING Last Admin: 11/09/17 08:53 Dose: 4 mg Phenobarbital (Phenobarbital Liquid -) 60 mg GT BID [facility] Last Admin: 11/12/17 23:00 Dose: 60 mg Polyethylene Glycol (Miralax (For Daily Use) -) 17 gm PO BID [facility] Last Admin: 11/12/17 22:57 Dose: 17 gm Senna (Senna Oral Solution -) 8.8 mg GT DAILY [facility] Last Admin: 11/12/17 09:57 Dose: 5 ml Sodium Phosphate (Fleet Adult Rectal Enema -) 133 ml [place] DAILY PRN PRN Reason: CONSTIPATION Last Admin: 11/11/17 19:45 Dose: 133 ml Valproate Sodium (Depakene -) 1,125 mg GT BID [facility] Last Admin: 11/12/17 22:57 Dose: 1,125 mg - Objective Vital Signs: Vital Signs Temperature 97.8 F 11/13/17 09:16 Pulse Rate 97 H 11/13/17 09:16 Respiratory Rate 20 11/13/17 09:16 Blood Pressure 140/89 11/13/17 09:16 O2 Sat by Pulse Oximetry (%) 100 11/12/17 21:00 Constitutional: Yes: No Distress, Calm Cardiovascular: Yes: Regular Rate and Rhythm Respiratory: Yes: Regular, CTA Bilaterally Gastrointestinal: Yes: Distention, Hypoactive Bowel Sounds, Other (g tube in place) Musculoskeletal: Yes: WNL Extremities: Yes: WNL Neurological: Yes: Alert Psychiatric: Yes: Alert Labs: CBC, BMP 11/13/17 05:35 11/13/17 05:35 INR, PTT INR 0.97 (0.82-1.09) 11/07/17 18:45 Assessment/Plan Problem List - Problems (1) DVT prophylaxis Code(s): [id number] - (2) Dementia Code(s): F03.90 - UNSPECIFIED DEMENTIA WITHOUT BEHAVIORAL DISTURBANCE Qualifiers: Dementia type: unspecified type Dementia behavioral disturbance: with behavioral disturbance Qualified Code(s): F03.91 - Unspecified dementia with behavioral disturbance (3) Elevated LFTs Code(s): R79.89 - OTHER SPECIFIED ABNORMAL FINDINGS OF BLOOD CHEMISTRY (4) Epilepsy Code(s): G40.909 - EPILEPSY, UNSP, NOT INTRACTABLE, WITHOUT STATUS EPILEPTICUS Qualifiers: Partial seizure type: with complex partial seizures Intractability: intractable Status epilepticus: without status epilepticus (5) [place]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 7)intestinal obstruction patient responded to enema still gi function is not good plan continue to monitor awaiting gi function to return continue hydration rest as per primary
[2017-11-13] MEDS: levETIRAcetam 500 MG/5 ML ORAL SOLUTION (UNIT-DOSE CUPS) GT SCH (10:55)
[2017-11-13] MEDS ORDERED: MAGNESIUM 1GM/D5W 100ML - 100 ML IVPB IVPB ONE (12:27)
--- NOTE | 2017-11-13 12:34 | DS ---
Physical Examination Vital Signs: Vital Signs Temperature 97.8 F 11/13/17 09:16 Pulse Rate 97 H 11/13/17 09:16 Respiratory Rate 20 11/13/17 09:16 Blood Pressure 140/89 11/13/17 09:16 O2 Sat by Pulse Oximetry (%) 100 11/13/17 09:00 Findings/Remarks: +BM AND TOLERATING FEEDS Constitutional: Yes: No Distress Eyes: Yes: WNL HENT: Yes: WNL Neck: Yes: WNL Cardiovascular: Yes: WNL Respiratory: Yes: WNL, On Nasal O2 Gastrointestinal: Yes: WNL Musculoskeletal: Yes: Muscle Weakness Extremities: Yes: Other Edema: No Integumentary: Yes: WNL Wound/Incision: Yes: Clean/Dry Neurological: Yes: Pre-Existing Deficit ...Motor Strength: LLE, RLE Psychiatric: Yes: Other Labs: CBC, BMP 11/13/17 05:35 11/13/17 05:35 Discharge Summary Reason For Visit: SEPSIS Current Active Problems Constipation (Acute) DVT prophylaxis (Acute) Dementia (Acute) Distended abdomen (Acute) Elevated LFTs (Acute) Epilepsy (Acute) Gregg disease (Acute) Hypokalemia (Acute) Sepsis (Acute) Other Procedures: CTSCAN/LABS/XRAYS Hospital Course: ADMITTED ACUTE SEPSIS RESP FAILURE, ABD PAIN GIVEN IV ABX, NEBS WILL DC TO SNF Condition: Guarded - Instructions Diet, Activity, Other Instructions: GT TOLERATED PATIENT IS DNR/DNI NOW WILL NEED A DO NOT HOSPITALIZE AT FACILITY SOAP SUDD ENEMAS Q 2-3 DAYS Referrals: Dave Catherine [Primary Care Provider] - Disposition: HALF-WAY FACILITY - Home Medications Comprehensive Discharge Medication List: Ambulatory Orders Acetaminophen 650 mg GT Q6H PRN 11/07/17 Albuterol 0.083% Nebulizer Betsy [Ventolin 0.083% Nebulizer Soln -] 1 neb NEB Q6H 11/07/17 Bacitracin - [Bacitracin Topical Ointment -] 1 applic TP DAILY 11/07/17 Clonazepam 1 mg GT TID 11/07/17 Ferrous Sulfate *Liquid* [Feosol] 5 mg NGT DAILY 11/07/17 Fluticasone Prop 0.05% Nasal [Flonase -] 1 - 2 spray NS BID 11/07/17 Levetiracetam [Keppra Oral Solution -] 1,000 mg GT BID 11/07/17 Magnesium Hydroxide [Milk of Magnesia -] 30 ml GT DAILY 11/07/17 Mirtazapine [Remeron -] 30 mg GT DAILY 11/07/17 Nystatin Cream [Mycostatin] 1 applic TP BID 11/07/17 Phenobarbital - 64.8 mg GT BID 11/07/17 Polyethylene Glycol 3350 [Miralax (For Bowel Prep) -] 17 gm GT DAILY PRN Sennosides [Senna Concentrate] 8.6 mg GT DAILY 11/07/17 Sodium Phosphate,Sangamon-Dibasic [Fleet Enema] 133 ml GA DAILY PRN 11/07/17 Triamcinolone 0.1% Cream [Aristocort] 1 applic TP BID 11/07/17 Valproate Sodium [Depakene] 1,125 mg GT BID 11/07/17 SOAP SUDD ENEMAS PER RECTAL Q 2 DAYS
[2017-11-13 17:36] VITALS: BP 106/66; PULSE 74; TEMP 98.7
--- NOTE | 2017-11-14 21:11 | PN ---
Progress Note (short form) - Note Progress Note: Addendum Diagnosis: Functional Quadriplegia Problem List - Problems (1) DVT prophylaxis Code(s): REG8958 - (2) Dementia Code(s): F03.90 - UNSPECIFIED DEMENTIA WITHOUT BEHAVIORAL DISTURBANCE Qualifiers: Dementia type: unspecified type Dementia behavioral disturbance: with behavioral disturbance Qualified Code(s): F03.91 - Unspecified dementia with behavioral disturbance (3) Elevated LFTs Code(s): R79.89 - OTHER SPECIFIED ABNORMAL FINDINGS OF BLOOD CHEMISTRY (4) Epilepsy Code(s): G40.909 - EPILEPSY, UNSP, NOT INTRACTABLE, WITHOUT STATUS EPILEPTICUS Qualifiers: Partial seizure type: with complex partial seizures Intractability: intractable Status epilepticus: without status epilepticus (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
== END 2017-11-13 19:20 | DRG 720 ==
LOC: JER 18:12 → JERBED 23:48 → J7W 11-08 12:17 → OBSVTOIN 11-09 10:35
PROVIDERS: ADMIT Family Medicine; ATTEND Family Medicine
PROC: 3E0G36Z Introduction of Nutritional Substance into Upper GI, Percutaneous Approach (ICD-10-PCS; principal; 2017-11-08)
DX: A41.9 Sepsis, unspecified organism (principal); R79.89 Other specified abnormal findings of blood chemistry; F03.90 Unspecified dementia, unspecified severity, without behavioral disturbance, psychotic disturbance, mood disturbance, and anxiety; G10 Huntington's disease; G40.909 Epilepsy, unspecified, not intractable, without status epilepticus; K59.00 Constipation, unspecified; E87.6 Hypokalemia; R53.2 Functional quadriplegia; R00.0 Tachycardia, unspecified; D64.9 Anemia, unspecified; Z93.1 Gastrostomy status; F31.89 Other bipolar disorder; D72.829 Elevated white blood cell count, unspecified; N39.0 Urinary tract infection, site not specified; K56.7 Ileus, unspecified; K56.609 Unspecified intestinal obstruction, unspecified as to partial versus complete obstruction; G31.9 Degenerative disease of nervous system, unspecified; F41.8 Other specified anxiety disorders; I25.10 Atherosclerotic heart disease of native coronary artery without angina pectoris
CPT/HCPCS: 36415; 70450-TC; 71010-TC; 71045-TC; 74018-TC; 74190-TC; 80048; 80053; 80074; 80164; 80307; 81003; 81015; 82550; 83605; 83735; 84484; 84703; 85025; 85027; 85610; 85730; 87040; 87086; 87186; 87804; 93005; 93010; 94640; 99285-25; G0378